=== PATIENT | female | born 1945 | race Caucasian/White ===

== ENCOUNTER → 2019-04-05 13:32 | Outpatient (CLI) | payer MEDICARE, SELFPAY ==
--- NOTE | ~2019-04-05 | MM_ITS ---
EXAMINATION: MM screening [facility] BI w jarred HISTORY: Screening mammogram TECHNIQUE: Craniocaudal and mediolateral oblique 3-D tomosynthesis images were obtained and synthetic 2-D images were generated. CAD analysis was submitted and interpreted. COMPARISON: 03/08/2018, 02/14/2017, 02/03/2016, 12/24/2014 BREAST PARENCHYMAL COMPOSITION: There are scattered areas of fibroglandular density. FINDINGS: Subtle asymmetry of the inner right breast on the craniocaudal view is stable on multiple p rior examinations. There is no evidence of suspicious mass, calcification, or architectural distortio n to suggest malignancy in either breast. There has been no suspicious interval change. IMPRESSION: 1. No mammographic evidence of malignancy. 2. Recommend routine screening mammography in one year. BI-RADS Category 2: Benign finding(s). Reviewed, dictated and finalized at location A. 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
== END ==
PROVIDERS: PCP Internal Medicine; Visit Provider Obstetrics & Gynecology
DX: Z12.31 Encounter for screening mammogram for malignant neoplasm of breast (principal)
CPT/HCPCS: 77063; 77067

== ENCOUNTER 2019-08-23 17:39 | Outpatient (CLI) | payer MEDICARE, SELFPAY ==
--- NOTE | ~2019-08-23 | XR_ITS ---
XR hip BI 2V w AP pelvis 08/23/2019 18:03 Indication: Bilateral hip pain Procedure: AP pelvis and 2 views each hip Comparison: 01/31/2006 Findings: There is mild-moderate bilateral osteoarthritis of the hips. There is a loose body lateral to the left hip joint. Pelvic rings are intact. Sacral foramen are symmetric. Degenerative changes sl ightly greater on the right. No focal soft tissue abnormality. Impression: 1: Mild-moderate bilateral osteoarthritis of the hips, right greater than left. Reviewed, dictated and finalized at location A. Impression: 1: Mild-moderate bilateral osteoarthritis of the hips, right greater than left.
--- NOTE | ~2019-08-23 | XR_ITS ---
XR lumbar spine 2-3V 08/23/2019 18:04 Indication: Low back pain Procedure: 3 views lumbar spine Comparison: 09/19/2007 Findings: There is disc narrowing at all lumbar levels, most advanced at L4-5. There is moderate mult ilevel facet hypertrophy throughout the lumbar spine. No fracture, subluxation or spondylolisthesis. There is atherosclerosis. Impression: 1: Progression of moderate lumbar spondylosis. Reviewed, dictated and finalized at location A. Impression: 1: Progression of moderate lumbar spondylosis.
== END 2019-08-23 17:40 | disposition home or self-care (01) ==
LOC: ANHIMG 17:43
PROVIDERS: PCP Internal Medicine; Visit Provider Internal Medicine
DX: M25.559 Pain in unspecified hip (principal); M16.0 Bilateral primary osteoarthritis of hip; M47.816 Spondylosis without myelopathy or radiculopathy, lumbar region
CPT/HCPCS: 72100; 73521

== ENCOUNTER → 2019-11-08 12:34 | Outpatient (CLI) | payer MEDICARE, SELFPAY ==
--- NOTE | ~2019-11-08 | MR_ITS ---
EXAMINATION: MR lumbar spine wo con EXAM DATE: 11/08/2019 13:04 INDICATION: Lumbar radiculopathy, right leg pain. TECHNIQUE: Multi-sequential, multiplanar MR images of the lumbar spine were obtained without contrast . Sagittal T1, T2, T2 fat saturation images. Axial T2 weighted images. Comparison is made to prior examination from 07/07/2011. FINDINGS: There is mild lumbar dextroscoliosis. The conus medullaris terminates at the L1 level and h as normal signal intensity and morphology. Moderate to severe disc disease L4-5, moderate at the oth er lumbar levels. There is 2 mm anterolisthesis L3 on L4. The vertebral bodies are otherwise aligned. Paraspinal soft tissue is unremarkable. Level by level evaluation: T12-L1: There is a mild diffuse disc bulge. Facet arthropathy: Mild. Neural foraminal stenosis: No stenosis. Central canal stenosis: No stenosis. L1-L2: There is a mild to moderate diffuse disc bulge, with superimposed small right central extrusio n, cephalad migration. Facet arthropathy: Mild. Neural foraminal stenosis: Mild left. Central canal stenosis: Mild to moderate. L2-L3: There is a mild to moderate diffuse disc bulge. Facet arthropathy: Moderate left, mild to moderate right. Ligamentum flavum hypertrophy.. Neural foraminal stenosis: Mild to moderate bilateral. Central canal stenosis: Mild. L3-L4: There is a moderate diffuse disc bulge. Facet arthropathy: Moderate some right-sided ligamentum flavum hypertrophy.. Neural foraminal stenosis: Moderate left, mild to moderate right. Central canal stenosis: Mild to moderate. Probable left hemilaminotomy defect. L4-L5: There is a moderate diffuse disc bulge. Facet arthropathy: Moderate. Neural foraminal stenosis: Severe left, moderate to severe right. Central canal stenosis: Mild, probable left hemilaminotomy. L5-S1: There is a moderate to large diffuse disc bulge. Facet arthropathy: Moderate to severe. Neural foraminal stenosis: Moderate to severe bilateral. Central canal stenosis: Mild to moderate. IMPRESSION: 1. Significant lower lumbar neural foraminal stenosis. 2. Spondylosis as detailed above with progression compared to 2011. Reviewed, dictated and finalized at location B.
== END ==
PROVIDERS: Visit Provider Internal Medicine
DX: M47.26 Other spondylosis with radiculopathy, lumbar region (principal)
CPT/HCPCS: 72148

== ENCOUNTER 2020-06-14 19:38 | Emergency (ER) | payer MEDICARE, SELFPAY ==
--- NOTE | ~2020-06-14 | CT_ITS ---
EXAMINATION: CT abdomen pelvis w con DATE: 06/14/2020 20:54 INDICATION: Abdominal pain. TECHNIQUE: Computed tomography (CT) of the abdomen and pelvis was performed with 100 mL Omnipaque-350 intravenous contrast. Automated exposure control and iterative reconstruction technique were employe d. The dose-length product was 344.28 mGy-cm. COMPARISON: None FINDINGS: Mild linear atelectasis at the bilateral lower lung zones. Heart size is normal. No pericardial or pl eural effusion. Cholecystectomy clips at the gallbladder fossa. Liver, spleen, pancreas and bilateral adrenal glands are normal. Bilateral renal cysts, the largest an exophytic 8 mm left renal cyst. No bowel obstruction. The appendix is not visualized. No pericecal inflammatory change to suggest acute appendicitis. Postoperative changes along the proximal colon with a couple suture lines at the ascend ing colon and hepatic flexure. At the splenic flexure there is focal prominent edematous wall thicken ing along either side of a diverticulum with prominent surrounding inflammatory stranding consistent with diverticulitis. There is a small calcification at the orifice of the diverticulum. No abscess or free intraperitoneal gas. Trace amount of free fluid in the cul-de-sac. Bladder, anteverted uterus a nd bilateral adnexa are unremarkable. There is calcified atherosclerosis of the aorta and many of the other arteries. Tiny fat-containing umbilical hernia. Mild lumbar dextrocurvature with severe spond ylosis. Moderate right and mild left hip osteoarthritis. IMPRESSION: 1. Radiographically uncomplicated diverticulitis at the hepatic flexure of the colon. Reviewed, dictated and finalized at location A.
[2020-06-14 20:00] VITALS: BP 150/59; PULSE 82; RESP 18; TEMP 36.3; O2SAT 97
[2020-06-14 20:10] LABS: Basophils Absolute Auto 0.1 K/mm3 (0.0-0.1); Basophils Percent Auto 0.4 % (0.2-1.2); Eosinophils Absolute Auto 0.1 K/mm3 (0-0.3); Eosinophils Percent Auto 0.4 % (0-4.4); Hematocrit 38.2 % (37.0-47.0); Hemoglobin 12.6 g/dL (12.0-15.0); Immature Granulocyte Absolute 0.05 K/mm3 (0.00-0.031); Immature Granulocyte Percent A 0.4 % (0-0.5); Lymphocytes Absolute Auto 2.25 K/mm3 (0.9-3.2); Lymphocytes Percent Auto 19.6 % (18.3-44.2); Mean Corpuscular Hemoglobin 30.3 pg (26-34); Mean Corpuscular Volume 91.8 fl (80-100); Mean Platelet Volume 9.3 fl (7.4-10.4); Monocytes Absolute Auto 0.8 K/mm3 (0.1-0.6); Monocytes Percent Auto 7.1 % (2.6-8.5); Neutrophils Absolute Auto 8.3 K/mm3 (1.3-6.7); Neutrophils Percent Auto 72.1 % (45.5-73.1); Platelet Count Result 238 k/mm3 (150-375); Red Blood Count 4.16 M/mm3 (4.2-5.4); Red Cell Distribution Width 13.1 % (11.5-14.5); White Blood Count 11.5 K/mm3 (4.5-10.0)
[2020-06-14 20:19] VITALS: TEMP 36.9
[2020-06-14 20:20] LABS: Alanine Aminotransferase 24 U/L (4-35); Albumin Level 4.3 g/dL (3.5-5.1); Alkaline Phosphatase 44 U/L (38-126); Anion Gap 0 mmol/L (8-16); Aspartate Amino Transferase 27 U/L (14-36); Bilirubin,Total 0.9 mg/dL (0.2-1.3); Blood Urea Nitrogen 9 mg/dL (7-17); Calcium 9.6 mg/dL (8.4-10.2); Carbon Dioxide 33 mmol/L (22-30); Chloride 106 mmol/L (98-107); Estimated CRCL calculation 52 ml/min; Estimated Glomerular Filt Rate > 60; Glucose 110 mg/dL (65-105); Lipase 47 U/L (23-300); Potassium 4.1 mmol/L (3.4-5.0); Sodium 139 mmol/L (137-145)
--- NOTE | 2020-06-14 20:31 | ED.ABDPAIN ---
HPI - Abdominal Pain General Chief Complaint: Abdominal Pain Stated Complaint: abdominal pain Time Seen by Provider: 06/14/20 20:18 Source: RN notes reviewed History of Present Illness HPI narrative: Patient presents to emergency department from home for abdominal pain. Patient states that symptoms began this morning is located in the bilateral lower abdomen described as cramping in nature patient states is associated with mild nausea she states nothing seems to make the pain better or worse. She called her PCP today who called in dicyclomine which she took with minimal relief denies take any other pain medication states she had a low-grade fever of 100.5 at home denies any diarrhea Related Data Home Medications Medication Instructions Recorded Confirmed magnesium oxide 400 mg PO DAILY 05/10/19 02/25/20 aspirin 81 mg chewable tablet 81 mg PO DAILY 02/25/20 02/25/20 cholecalciferol (vitamin D3) 50 50 mcg PO DAILY 02/25/20 02/25/20 mcg (2,000 unit) capsule linaclotide 72 mcg capsule 72 mcg PO DAILY 02/25/20 02/25/20 pantoprazole 40 mg tablet,delayed 40 mg PO QAM 02/25/20 02/25/20 release Allergies Allergy/AdvReac Type Severity Reaction Status Date / Time oxycodone Allergy Intermediate Nausea and Verified 02/25/20 13:18 Vomiting propoxyphene Allergy Intermediate Nausea Verified 02/25/20 13:18 gemfibrozil Allergy Unknown Nausea Verified 02/25/20 13:18 Sulfa (Sulfonamide Allergy Unknown Rash Verified 02/25/20 13:18 Antibiotics) Review of Systems Review of Systems: Narrative: Gen.: Denies fevers or chills ENT: Denies congestion Respiratory: Denies shortness of breath or cough CV: Denies chest pain or palpitations GI: See HPI denies burning, urgency, frequency or hematuria Musculoskeletal: Denies back pain or muscle pain Neuro: Denies numbness, tingling, weakness or focal weakness Skin: Denies rash Except as documented, all other systems reviewed and negative [facility] Past Medical History Medical History Abnormal carotid ultrasound Cervicalgia Complete tear of left rotator cuff Fibromyalgia Personal history of transient ischemic attack (TIA), and cerebral infarction without residual deficits Polyosteoarthritis, unspecified Screening for breast cancer Screening for colon cancer Spinal stenosis of lumbar region Family History Family History Mother Hypertension Sibling Patient's sister is in good health Patient's brother is in good health Family history of alcoholism Cerebrovascular accident Father Family history of pancreatic cancer Patient's father is Social History Social History Smoking status: Never smoker Alcohol intake: never Exam Narrative: Exam Narrative: APPEARANCE: No acute distress, nontoxic, resting in bed HEENT: Normocephalic, atraumatic, OMM RESPIRATORY: No respiratory distress, clear to auscultation bilaterally with no rhonchi wheezing or rales CARDIOVASCULAR: RRR s murmur ABDOMINAL: Soft nondistended tender palpation right lower quadrant left lower quadrant no tenderness in right upper quadrant left upper quadrant no rebound or guarding MUSCULOSKELETAl: Moves all extremities. No clubbing, cyanosis or edema. NEURO: Awake and alert. Following commands, speech normal, no focal deficits SKIN:: Warm, dry. Normal Color PSYCHIATRIC: Normal affect/mood Course Course Emergency Course: Patient states that they are feeling much better at this time. States abdominal pain has improved. Repeat abdominal exam shows the patient's abdomen to be soft with no surgical abdomen present. Discussed with patient results of workup and diagnosis. Discussed need for follow-up with primary care physician, reasons to return to the emergency department in proper use of medication. Patient understands and agrees to cur
[2020-06-14] MEDS: ONDANSETRON INJ 4 MG/2 ML VIAL IV PUSH (20:37)
[2020-06-14 20:38] LABS: Add Urine Microscopic? YES; Appearance Urine Clear (Clear); Bilirubin Urine Negative (Negative); Blood Urine 1+ (Negative); Color Urine Yellow (Yellow); Glucose Urine UA Negative (Negative); Ketones Urine Negative (Negative); Leukocyte Esterase Ur Negative LEU/UL (Negative); Mucus Urine Rare /lpf; Nitrate Urine Negative (Negative); Protein Urine Negative (Negative); RBC Urine 0-2 /hpf (0-2); Specific Grav Ur 1.012 (1.001-1.035); Squamous Epithelial Cell Urine Few /hpf (Few); Urobilinogen Urine Negative mg/dL (<2.0); WBC Urine 0-3 /hpf
[2020-06-14] MEDS: SODIUM CHLORIDE 0.9% IV 1,000 ML 999 ML IV CONT (20:38)
[2020-06-14] MEDS: AMOXICILLIN/CLAVULANATE K 875-125 MG TAB 1 TABLET PO (21:24)
[2020-06-14 21:46] VITALS: BP 136/61; PULSE 72; RESP 16; O2SAT 97
== END 2020-06-14 21:45 | disposition home or self-care (01) ==
PROVIDERS: Emergency Provider Emergency Medicine; PCP Internal Medicine
DX: K57.32 Diverticulitis of large intestine without perforation or abscess without bleeding (principal); M79.7 Fibromyalgia; M19.90 Unspecified osteoarthritis, unspecified site; Z86.73 Personal history of transient ischemic attack (TIA), and cerebral infarction without residual deficits
CPT/HCPCS: 36415; 74177; 80053; 81001; 83690; 85025; 96361; 96365; 96375; 99284; A9270; J0131; J2405; J7030; Q9967

== ENCOUNTER 2020-07-14 15:05 | Outpatient (CLI) | payer MEDICARE, SELFPAY ==
--- NOTE | ~2020-07-14 | MM_ITS ---
EXAMINATION: MM screening [facility] BI w jarred HISTORY: Screening TECHNIQUE: Craniocaudal and mediolateral oblique 3-D tomosynthesis images were obtained and synthetic 2-D images were generated. CAD analysis was submitted and interpreted. COMPARISON: Comparison to multiple prior studies sequentially, with oldest reviewed study dated 12/14. BREAST PARENCHYMAL COMPOSITION: There are scattered areas of fibroglandular density. FINDINGS: There is no evidence of suspicious mass, calcification, or architectural distortion to sugg est malignancy in either breast. There has been no suspicious interval change. IMPRESSION: 1. No mammographic evidence of malignancy. 2. Recommend routine screening mammography in one year. BI-RADS Category 1: Negative Reviewed, dictated and finalized at location A.
--- NOTE | ~2020-07-14 | DEXA_ITS ---
Bone Density Report Name: Christa Quiroz Age: 75 Sex: Female Ethnicity: White Date of : 1945 Indication: postmenopausal; inflammatory bowel disease; Referring Provider: Roxanna Hawkins Study: Bone densitometry was performed. Exam Date: July 14, 2020 Accession number: [id number] Bone Density: Region BMD T-score Z-score Classification AP Spine (L1-L4) 1.153 1.0 3.3 Normal Femoral Neck (Left) 0.593 -2.3 -0.3 Osteopenia Total Hip (Left) 0.800 -1.2 0.6 Osteopenia Total Hip Bilateral Avg 0.832 -0.9 0.9 Normal Femoral Neck (Right) 0.647 -1.8 0.2 Osteopenia Total Hip (Right) 0.862 -0.7 1.1 Normal World Health Organization criteria for BMD impression classify patients as: Normal (T-score at or above -1.0), Osteopenia (T-score between -1.0 and -2.5), or Osteoporosis (T-score at or below -2.5). 10-year Fracture Risk(1): Major Osteoporotic Fracture 15% Hip Fracture 4.0% Reported Risk Factors: [place] (), Neck BMD=0.593, BMI=25.4 (1) FRAX(R) Version 3.08. Fracture probability calculated for an untreated patient. Fracture probability may be lower if the patient has received treatment. Clinical Information Provided by Patient: Has used the following medications: Vitamin D, Calcium Has the following medical conditions: Inflammatory bowel diseases Patient maximum height was 61 Menopause Age: 53 No regular weight bearing exercise Drinks caffeinated beverages Onset of menses at age 13 Number of children 1 Impression: The patient has low bone mass, based on the Left Femoral Neck T-score. The patient has an estimated ten-year risk of hip fracture of 4% and an estimated ten-year risk of major fracture of 15%, based on the WHO FRAX algorithm. Discussion: BONE DENSITY IS LOW AT ONE OR MORE SKELETAL SITES. THE PATIENT'S BMD AND CLINICAL RISK FACTORS CONTRIBUTE TO THIS PATIENT'S INCREASED RISK OF FRACTURE. This patient's lowest T-score is low at one or more skeletal sites. It meets the World Health Organization's (WHO) criteria for ?low bone mass? (T-score between -1.0 and -2.5). The patient's 10-year risk of hip fracture as calculated by FRAX exceeds the threshold where pharmacological therapy is recommended by the National Osteoporosis Foundation (NOF). However, all treatment decisions require clinical judgment and consideration of individual patient factors, including patient preferences, comorbidities, previous drug use, risk factors not captured in the FRAX model (e.g., frailty, falls, vitamin D deficiency, increased bone turnover, interval significant decline in bone density) and possible under or overestimation of fracture risk by FRAX. The patient should follow a healthful lifestyle (good nutrition with adequate calcium and vitamin D, and appropriate weight-bearing exercise). Follow-Up: Consider a rep
== END 2020-07-14 15:06 | disposition home or self-care (01) ==
PROVIDERS: PCP Internal Medicine; Visit Provider Obstetrics & Gynecology
DX: Z12.31 Encounter for screening mammogram for malignant neoplasm of breast (principal); Z78.0 Asymptomatic menopausal state; M85.89 Other specified disorders of bone density and structure, multiple sites
CPT/HCPCS: 77063; 77067; 77080

== ENCOUNTER 2020-08-19 16:15 | Emergency (ER) | payer MEDICARE, SELFPAY ==
--- NOTE | ~2020-08-19 | CT_ITS ---
EXAMINATION: CTA chest PE protocol DATE: 08/19/2020 20:22 CDT INDICATION: Chest and back pain TECHNIQUE: Computed tomographic angiography (CTA) of the chest was performed with 100 mL Omnipaque-35 0 intravenous contrast. The dose-length product was 220.32 mGy-cm. Maximum intensity projection 3D-re constructions of the aorta and other arteries were constructed by the technologist on a separate work station. Automated exposure control and iterative reconstruction technique were employed. COMPARISON: Chest dated 08/19/2020. FINDINGS: Study is technically adequate without evidence for pulmonary embolism. No thoracic lymphade nopathy. There is atherosclerosis of the aorta and coronary arteries without evidence for aneurysm or dissection. Study limited by motion artifact. There are patchy groundglass opacities of the mid and lower lung zones. Bibasilar atelectasis. No endobronchial lesions. There are cholecystectomy clips. M ild thoracic spondylosis. IMPRESSION: 1. No evidence for pulmonary embolism, although evaluation limited by motion. 2: Patchy groundglass opacities of the mid and lower lung zones, considerations include edema and pn eumonia. 3: Subsegmental right basilar atelectasis. Reviewed, dictated and finalized at location A. IMPRESSION: 1. No evidence for pulmonary embolism, although evaluation limited by motion. 2: Patchy groundglass opacities of the mid and lower lung zones, consideration s include edema and pneumonia. 3: Subsegmental right basilar atelectasis.
--- NOTE | ~2020-08-19 | XR_ITS ---
EXAMINATION: XR chest 2V EXAM DATE: 08/19/2020 16:52 INDICATION: Superior chest pain. TECHNIQUE: Frontal and lateral projections of the chest obtained and reviewed. Comparison is made to prior examination from 11/28/2018. FINDINGS: Some scattered linear basilar atelectasis. The lungs are otherwise clear. There are chol ecystectomy clips. There is no pneumothorax suspected. There are no pleural effusions. Cardiomediast inal silhouette is normal. IMPRESSION: Scattered linear basilar subsegmental atelectasis. Reviewed, dictated and finalized at location B.
--- NOTE | 2020-08-19 16:16 | ECG_ITS ---
Measurements Intervals [place] Rate: 69 P: 9 GA: 159 QRS: -29 QRSD: 86 T: 53 QT: 386 QTc: 414 Interpretive Statements SINUS RHYTHM POOR R WAVE PROGRESSION, ANTERIOR LEADS BORDERLINE ECG Electronically Signed On 08-19-2020 16:39:30 CDT by Mio Vasquez D.O.
[2020-08-19 16:30] VITALS: BP 115/66; PULSE 67; RESP 16; TEMP 36.8; O2SAT 100
[2020-08-19 16:39] LABS: Basophils Absolute Auto 0.1 K/mm3 (0.0-0.1); Basophils Percent Auto 0.9 % (0.2-1.2); Eosinophils Absolute Auto 0.2 K/mm3 (0-0.3); Eosinophils Percent Auto 3.9 % (0-4.4); Hematocrit 38.7 % (37.0-47.0); Hemoglobin 12.6 g/dL (12.0-15.0); Immature Granulocyte Absolute 0.01 K/mm3 (0.00-0.031); Immature Granulocyte Percent A 0.2 % (0-0.5); Lymphocytes Absolute Auto 2.33 K/mm3 (0.9-3.2); Mean Corpuscular HGB Conc 32.6 g/dl (32-36); Mean Corpuscular Volume 92.1 fl (80-100); Mean Platelet Volume 9.6 fl (7.4-10.4); Monocytes Absolute Auto 0.4 K/mm3 (0.1-0.6); Monocytes Percent Auto 7.2 % (2.6-8.5); Neutrophils Absolute Auto 2.4 K/mm3 (1.3-6.7); Neutrophils Percent Auto 44.8 % (45.5-73.1); Platelet Count Result 211 k/mm3 (150-375); Red Cell Distribution Width 13.2 % (11.5-14.5); White Blood Count 5.4 K/mm3 (4.5-10.0)
[2020-08-19 16:49] LABS: Anion Gap 5 mmol/L (8-16); Blood Urea Nitrogen 12 mg/dL (7-17); Calcium 8.8 mg/dL (8.4-10.2); Carbon Dioxide 28 mmol/L (22-30); Chloride 106 mmol/L (98-107); Estimated CRCL calculation 46 ml/min; Estimated Glomerular Filt Rate > 60; Glucose 126 mg/dL (65-105); Potassium 3.9 mmol/L (3.4-5.0); Prothrombin Time 12.8 Seconds (11.1-14.7); Sodium 139 mmol/L (137-145)
[2020-08-19 16:50] LABS: Partial Thromboplastin Time 27.5 SECONDS (22.3-36.8)
[2020-08-19 17:02] LABS: Troponin I < 0.012 ng/mL (0.000-0.034)
[2020-08-19 19:16] VITALS: BP 122/68; PULSE 64; RESP 18; O2SAT 96
--- NOTE | 2020-08-19 19:25 | ED.CHESTPAIN ---
HPI - Chest Pain General Chief Complaint: Chest Pain Stated Complaint: cp since monday Time Seen by Provider: 08/19/20 19:25 Source: patient Mode of arrival: ambulatory Limitations: no limitations History of Present Illness HPI narrative: Patient is a 75-year-old female with a history of osteopenia who presents for evaluation of chest pain. Pain has been present over the past 4 days, described as aching in nature over her entire chest and in her back. She denies any jaw pain, neck pain, shortness of breath or palpitations. No nausea or diaphoresis. She has been taking a Tylenol and ibuprofen without much improvement in her symptoms. Patient attributes the pain to starting a new Fosamax medication. States in the past when she tried to take this medication she experienced similar pain. Patient's [facility] Dr. Hawkins sent her here for evaluation given her symptoms. Related Data Home Medications Medication Instructions Recorded Confirmed magnesium oxide 400 mg PO DAILY 05/10/19 02/25/20 aspirin 81 mg chewable tablet 81 mg PO DAILY 02/25/20 02/25/20 cholecalciferol (vitamin D3) 50 50 mcg PO DAILY 02/25/20 02/25/20 mcg (2,000 unit) capsule linaclotide 72 mcg capsule 72 mcg PO DAILY 02/25/20 02/25/20 pantoprazole 40 mg tablet,delayed 40 mg PO QAM 02/25/20 02/25/20 release Allergies Allergy/AdvReac Type Severity Reaction Status Date / Time oxycodone Allergy Intermediate Nausea and Verified 08/19/20 19:38 Vomiting propoxyphene Allergy Intermediate Nausea Verified 08/19/20 19:38 gemfibrozil Allergy Unknown Nausea Verified 08/19/20 19:38 Sulfa (Sulfonamide Allergy Unknown Rash Verified 08/19/20 19:38 Antibiotics) Review of Systems Review of Systems: Narrative: CONSTITUTIONAL: Denies fever, chills, or sweats. EYES: Denies visual changes, redness, or discharge. ENT: Denies rhinorrhea, congestion, sore throat, or otalgia. CARDIOVASCULAR: Reports chest pain, denies palpitations, or edema. RESPIRATORY: Denies cough or dyspnea. GASTROINTESTINAL: Denies abdominal pain, nausea, vomiting, or diarrhea. GENITOURINARY: Denies dysuria or hematuria. SKIN: Denies rash or itching. MUSCULOSKELETAL: Denies back pain, joint pain, or myalgia. NEUROLOGIC: Denies headache, numbness, or weakness. PSYCHIATRIC: Denies anxiety or depression. [facility] Past Medical History Medical History Abnormal carotid ultrasound Cervicalgia Complete tear of left rotator cuff Fibromyalgia Personal history of transient ischemic attack (TIA), and cerebral infarction without residual deficits Polyosteoarthritis, unspecified Screening for breast cancer Screening for colon cancer Spinal stenosis of lumbar region Family History Family History Mother Hypertension Sibling Patient's sister is in good health Patient's brother is in good health Family history of alcoholism Cerebrovascular accident Father Family history of pancreatic cancer Patient's father is Social History Social History Smoking status: Never smoker Alcohol intake: never Gender identity (if verbalized by the patient): Female Exam Narrative: Exam Narrative: GENERAL: Awake, alert, conversant HEAD: Normocephalic, atraumatic. EYES: PERRLA and EOMI. ENT: Nares clear, no rhinorrhea or epistaxis. Mucous membranes moist. NECK: Supple. CHEST: No respiratory distress, breathing even and non labored, reproducible chest wall tenderness over the anterior chest wall, no crepitus or ecchymoses HEART: Regular rate, sinus rhythm ABDOMEN:Non distended, non tender EXTREMITIES: Normal range of motion. No edema. SKIN: Warm, dry, no rash. NEURO:No focal deficits. Alert and oriented x3 Course Vital Signs Vital signs: Vital Signs Temperature 36.8 C 08/19/20 16:30 Pulse Rate 67 08/19/20 16:30 Respirat
[2020-08-19] MEDS: ASPIRIN 81 MG CHEWABLE TABLET 324 MG PO (19:33)
[2020-08-19 19:35] VITALS: O2SAT 96
[2020-08-19 19:49] LABS: Troponin I < 0.012 ng/mL (0.000-0.034)
[2020-08-19 20:31] VITALS: BP 106/55; PULSE 63; RESP 21; O2SAT 97
[2020-08-19 21:50] VITALS: BP 124/59; PULSE 60; RESP 18; O2SAT 98
[2020-08-20 15:39] LABS: SARS-CoV-2 RNA PCR Negative
== END 2020-08-19 21:55 | disposition home or self-care (01) ==
PROVIDERS: Emergency Medicine; Emergency Provider Emergency Medicine; PCP Internal Medicine
DX: J18.9 Pneumonia, unspecified organism (principal); R07.89 Other chest pain; Z20.822 Contact with and (suspected) exposure to COVID-19; M79.7 Fibromyalgia; M19.90 Unspecified osteoarthritis, unspecified site; Z86.73 Personal history of transient ischemic attack (TIA), and cerebral infarction without residual deficits; R94.31 Abnormal electrocardiogram [ECG] [EKG]; Z79.82 Long term (current) use of aspirin
CPT/HCPCS: 36415; 71046; 71275; 80048; 84484; 85025; 85610; 85730; 93005; 99284; A9270; C9803; Q9967; U0003; U0005

== ENCOUNTER 2020-11-27 19:52 | Emergency (ER) | payer MEDICARE, SELFPAY ==
--- NOTE | ~2020-11-27 | CT_ITS ---
EXAMINATION: CT brain wo con DATE: 11/27/2020 20:41 INDICATION: Head injury. Headache. TECHNIQUE: Computed tomography (CT) of the head was performed without intravenous contrast. The mA wa s adjusted according to patient size. Iterative reconstruction technique was employed. The dose-lengt h product was 605.33 mGy-cm. COMPARISON: Head CT 06/05/2017 FINDINGS: There is chronic encephalomalacia involving the right frontal lobe deep white matter and ri ght caudate nucleus. There are scattered areas of low attenuation in the cerebral white matter. There is no intracranial hemorrhage, acute infarction, or abnormal intracranial mass lesion. The ventricle s are normal in size. The orbits are normal. There is mild mucosal thickening in the paranasal sinuse s. The mastoid air cells are normal. IMPRESSION: 1. Chronic encephalomalacia involving the right frontal lobe deep white matter and right caudate nucl eus. 2. Stable mild nonspecific cerebral white matter disease, which likely represents chronic small vesse l ischemic disease. Reviewed, dictated and finalized at location A. IMPRESSION: 1. Chronic encephalomalacia involving the right frontal lobe deep white matter and right caudate nucleus. 2. Stable mild nonspecific cerebral white matter disease, which likely represen ts chronic small vessel ischemic disease.
[2020-11-27 20:01] VITALS: BP 143/78; PULSE 78; RESP 18; TEMP 36.4; O2SAT 98
--- NOTE | 2020-11-27 20:41 | ED.FALL ---
HPI - Fall General Chief Complaint: Fall Stated Complaint: tripped and hit back of head- now headache Time Seen by Provider: 11/27/20 20:07 Source: patient Mode of arrival: ambulatory Limitations: no limitations History of Present Illness HPI Narrative: This is a 75 year old female who presents for evaluation of a head injury. Patient states she tripped getting out of her car. She fell backwards and she hit her head on the grass. She denies LOC but she reports she developed new headache after injury . Her headache is improving. She denies neck pain, extremity pain or rib pain. She nausea, vomiting, dizziness or blurred vision. She takes aspirin 81 mg daily. Related Data Home Medications Medication Instructions Recorded Confirmed magnesium oxide 400 mg PO DAILY 05/10/19 09/03/20 aspirin 81 mg chewable tablet 81 mg PO DAILY 02/25/20 09/03/20 cholecalciferol (vitamin D3) 50 50 mcg PO DAILY 02/25/20 09/03/20 mcg (2,000 unit) capsule pantoprazole 40 mg tablet,delayed 40 mg PO QAM 02/25/20 09/03/20 release alendronate 70 mg tablet 70 mg PO WEEKLY 09/03/20 09/03/20 Allergies Allergy/AdvReac Type Severity Reaction Status Date / Time oxycodone Allergy Intermediate Nausea and Verified 11/27/20 21:01 Vomiting propoxyphene Allergy Intermediate Nausea Verified 11/27/20 21:01 gemfibrozil Allergy Unknown Nausea Verified 11/27/20 21:01 Sulfa (Sulfonamide Allergy Unknown Rash Verified 11/27/20 21:01 Antibiotics) Review of Systems Review of Systems: All systems reviewed & are unremarkable except as noted in HPI and below PMFSH Past Medical History Medical History Abnormal carotid ultrasound Cervicalgia Complete tear of left rotator cuff Fibromyalgia Personal history of transient ischemic attack (TIA), and cerebral infarction without residual deficits Polyosteoarthritis, unspecified Screening for breast cancer Screening for colon cancer Spinal stenosis of lumbar region Family History Family History Mother Hypertension Sibling Patient's sister is in good health Patient's brother is in good health Family history of alcoholism Cerebrovascular accident Father Family history of pancreatic cancer Patient's father is Social History Social History (Updated 09/03/20 @ 15:51 by Bonnie Phillips MA) Smoking packs per day: 0.25 Smoking cigarettes per day: 5.0 Years smoked: 8 Smoking pack-years: 2.00 Smoking status: Former smoker Second hand tobacco smoke exposure: Yes Smoking end date: 11/01/78 Alcohol intake: never Substance use: never Gender identity (if verbalized by the patient): Female Exam Const: General: no acute distress and alert Orientation/consciousness: patient oriented x3 HENMT: Head: normocephalic and atraumatic Face and sinus: normal facial exam, sinuses nontender and face symmetric Mouth: Yes Normal oral and palatal mucosa present, Yes lip normal, Yes oropharynx normal and Yes moist mucous membranes Throat: posterior oropharynx normal Eyes: EOM: EOMs intact bilaterally Chest: Chest palpation & inspection: normal inspection of the chest and no tenderness Resp: Effort & Inspection: normal respiratory effort and no retractions Auscultation: clear to auscultation bilaterally Cardio: Rate: regular rate Rhythm: regular rhythm Heart sounds: no murmurs GI: GI Palp: Yes Soft to palpation, No Tenderness to palpation present (GI) and No Guarding due to palpation present (GI) Auscultation: normal bowel sounds Back/Spine/Pelvis: Other: no c spine tenderness Skin: General skin exam: normal color Rashes: no rashes Neuro: General: patient oriented x3, moves all extremities and CN's II-XI intact bilaterally Extrem: Other: mild left shoulder tenderness at site of influenza vaccination, bandage in place Psych: Mental Status: menta
[2020-11-27 20:58] VITALS: BP 132/64; PULSE 66; RESP 16; O2SAT 98
[2020-11-27 21:04] VITALS: PULSE 66; RESP 16; O2SAT 97
== END 2020-11-27 21:06 | disposition home or self-care (01) ==
PROVIDERS: Emergency Provider General Practice; PCP Internal Medicine
DX: S09.90XA Unspecified injury of head, initial encounter (principal); M79.7 Fibromyalgia; M19.90 Unspecified osteoarthritis, unspecified site; Z86.73 Personal history of transient ischemic attack (TIA), and cerebral infarction without residual deficits; Z87.891 Personal history of nicotine dependence; Z79.82 Long term (current) use of aspirin; W01.0XXA Fall on same level from slipping, tripping and stumbling without subsequent striking against object, initial encounter
CPT/HCPCS: 70450; 99284

== ENCOUNTER 2020-12-07 18:48 | Emergency (ER) | payer MEDICARE, SELFPAY ==
--- NOTE | ~2020-12-07 | XR_ITS ---
XR finger 5th RT min 2V 12/07/2020 19:12 Indication: Right fifth finger pain status post injury Procedure: 3 views right fifth finger Comparison: 04/16/2016 Findings: There is a mildly displaced fracture dorsal base of the fifth distal phalanx, best seen on lateral view. There is mild polyarticular osteoarthritis. Osteopenia. No other fracture. Mild soft ti ssue swelling. Impression: 1: Mildly displaced fracture dorsal base right fifth distal phalanx. Reviewed, dictated and finalized at location A. Impression: 1: Mildly displaced fracture dorsal base right fifth distal phalanx.
[2020-12-07 18:58] VITALS: BP 143/58; PULSE 79; RESP 16; TEMP 36.1; O2SAT 98
--- NOTE | 2020-12-07 19:34 | ED.EXTPRO ---
HPI - Extremity Problem General Chief complaint: Extremity Problem,Nontraumatic Stated complaint: Swelling of finger Time Seen by Provider: 12/07/20 19:20 Source: patient, family, RN notes reviewed and old records reviewed Mode of arrival: ambulatory Limitations: no limitations History of Present Illness HPI Narrative: 75 year old female accompanied by grandson with complaints of pain to her 5th finger of her right hand for the past 3 weeks. She states that she hit it on something and she continues to have some pain and swelling to the distal dorsal aspect of her 5th right finger. Patient reports that she has applied some ice to theher 5th finger and has taken some Tylen for the discomfort. Patient is unable to bend the DIP of 5th right finger, denies any tingling or numbness to her right hand or fingers, MD Complaint: extremity pain and extremity swelling Related Data Home Medications Medication Instructions Recorded Confirmed aspirin 81 mg chewable tablet 81 mg PO DAILY 02/25/20 09/03/20 cholecalciferol (vitamin D3) 50 50 mcg PO DAILY 02/25/20 09/03/20 mcg (2,000 unit) capsule pantoprazole 40 mg tablet,delayed 40 mg PO QAM 02/25/20 09/03/20 release alendronate 70 mg tablet 70 mg PO WEEKLY 09/03/20 09/03/20 icosapent ethyl [Vascepa] g PO 12/07/20 Allergies Allergy/AdvReac Type Severity Reaction Status Date / Time oxycodone Allergy Intermediate Nausea and Verified 12/07/20 19:23 Vomiting propoxyphene Allergy Intermediate Nausea Verified 12/07/20 19:23 gemfibrozil Allergy Unknown Nausea Verified 12/07/20 19:23 Sulfa (Sulfonamide Allergy Unknown Rash Verified 12/07/20 19:23 Antibiotics) Review of Systems Review of Systems: CONSTITUTIONAL: Denies fever, chills, or sweats. EYES: Denies visual changes, redness, or discharge. ENT: Denies rhinorrhea, congestion, sore throat, or otalgia. CARDIOVASCULAR: Denies chest pain, palpitations, or edema. RESPIRATORY: Denies cough or dyspnea. GASTROINTESTINAL: Denies abdominal pain, nausea, vomiting, or diarrhea. GENITOURINARY: Denies dysuria or hematuria. SKIN: Denies rash or itching. MUSCULOSKELETAL: Denies back pain,positive for pain and swelling to distal 5th finger of right hand, or myalgia. NEUROLOGIC: Denies headache, numbness, or weakness. PSYCHIATRIC:Positive history of anxiety or depression. All systems reviewed & are unremarkable except as noted in HPI and below PMFSH Past Medical History Medical History Abnormal carotid ultrasound Cervicalgia Complete tear of left rotator cuff Fibromyalgia Personal history of transient ischemic attack (TIA), and cerebral infarction without residual deficits Polyosteoarthritis, unspecified Screening for breast cancer Screening for colon cancer Spinal stenosis of lumbar region Surgical History Surgical History (Updated 12/12/20 @ 11:16 by Sharon Cantor NP) History of bilateral carpal tunnel release History of colon resection History of shoulder surgery Hx of appendectomy Previous back surgery Family History Family History Mother Hypertension Sibling Patient's sister is in good health Patient's brother is in good health Family history of alcoholism Cerebrovascular accident Father Family history of pancreatic cancer Patient's father is Social History Social History Smoking packs per day: 0.25 Smoking cigarettes per day: 5.0 Years smoked: 8 Smoking pack-years: 2.00 Smoking status: Former smoker Second hand tobacco smoke exposure: Yes Smoking end date: 11/01/78 Alcohol intake: never Substance use: never Gender identity (if verbalized by the patient): Female Comments At time of signature, agree with nursing past medical, surgical, social and family history. There is no relevant family history pertine
== END 2020-12-07 19:55 | disposition home or self-care (01) ==
PROVIDERS: Emergency Provider Registered Nurse; PCP Internal Medicine
DX: S62.636A Displaced fracture of distal phalanx of right little finger, initial encounter for closed fracture (principal); X58.XXXA Exposure to other specified factors, initial encounter; M79.7 Fibromyalgia; Z86.73 Personal history of transient ischemic attack (TIA), and cerebral infarction without residual deficits; M19.90 Unspecified osteoarthritis, unspecified site; Z87.891 Personal history of nicotine dependence; M48.061 Spinal stenosis, lumbar region without neurogenic claudication
CPT/HCPCS: 29130; 73140; 99214; G0463

== ENCOUNTER 2021-01-12 16:14 | Outpatient (CLI) | payer MEDICARE, SELFPAY ==
--- NOTE | ~2021-01-12 | XR_ITS ---
XR finger 5th RT min 2V 01/12/2021 16:55 Indication: Follow-up right fifth finger fracture Procedure: 4 views right fifth finger Comparison: 12/07/2020 Findings: Stable alignment of displaced fracture right fifth distal phalanx involving the dorsal base . Mild soft tissue swelling. No significant periosteal reaction or callus formation. Impression: 1: No significant interval change to mildly displaced fracture dorsal base right fifth distal phalanx without evidence for new productive bone formation. Reviewed, dictated and finalized at location B. ION HAND HELPER Impression: 1: No significant interval change to mildly displaced fracture dorsal base righ t fifth distal phalanx without evidence for new productive bone formation.
== END 2021-01-12 16:15 | disposition home or self-care (01) ==
LOC: ANHIMG 16:21
PROVIDERS: PCP Internal Medicine; Visit Provider Plastic Surgery
DX: S62.636A Displaced fracture of distal phalanx of right little finger, initial encounter for closed fracture (principal)
CPT/HCPCS: 73140

== ENCOUNTER 2021-01-21 01:14 | Day surgery (SDC) | payer MEDICARE, SELFPAY ==
[2021-01-15 08:37] VITALS: BMI 26.4
--- NOTE | 2021-01-15 08:41 | PC.NURSE ---
Report to the Outpatient Waiting Room, entrance under the green pavilion located off [facility], at time _1200___ on date _01/21/21__. OR Time: _1PM__. - You and your visitor will be asked a series of questions to screen for COVID 19 for your protection. - A mask is required within the hospital. - Only one visitor is allowed at this time. Patient visitors will be guided where to wait when not with patient. Preoperative COVID Testing Requirements: No COVID Test needed if: (proof is required; if not received patient will have Rapid Test prior to entry) - Patient has received COVID Vaccine at least 14 days prior to procedure date or - Patient has positive COVID test result within last 90 days of surgery date. COVID Test needed if above criteria is not met If not COVID vaccinated a COVID test must be conducted within 72 hours of surgery and patient is asked to isolate self from time of testing until procedure. You will go to the [facility] for your COVID testing. The [facility] site is located at the corner of [address] [facility]. You will only be called if COVID results are positive and your surgeon may reschedule your elective surgery date. Patients may have clear liquids (water, carbonated beverages, clear teas, apple juice) until 3 hours prior to surgery with a maximum of 20 ounces. - No food from midnight until time of surgery - Infants may have breast milk until 4 hours before surgery, formula 6 hours prior to surgery. - Children will be allowed to drink immediately following surgery. If applicable, please bring a bottle or sippy cup to assist with drinking. Juice, water, soda, and popsicles are readily available. For infants on formula, please bring formula the day of surgery. Pacifiers are allowed. Take the following medications with a SIP of water the morning of surgery: __REGULAR HOME MEDS Medications to discontinue per physician Date to take last dose Please no make-up, nail greek, hairspray, perfume, deodorant, or body powder the day of surgery. No jewelry (including any body piercings) or valuables the day of surgery, leave them at home. Please take a shower or bath the night before, or the morning of, surgery with an antibacterial soap. Wear comfortable, loose fitting clothing. Children are encouraged to wear pajamas. - Jewelry must be removed prior to entering the operating room. Rings and piercings that are not removed may be cut off. - The hospital will not accept responsibility for valuables. - Please leave all valuables, including medications, at home the day of surgery. If you are going home after surgery, a licensed tractor trailer truck driver must drive you home. - NO public transportation without another adult. - We recommend that an adult stay with you for 24 hours following discharge. - We also recommend that you do not drive, make important decision, drink alcoholic beverages, or take any drugs that were not prescribed by your health care provider for at least 24 hours after your discharge time. For Pediatric surgeries, we recommend two adults accompany the child home (only one inside the building at this time). Follow any additional instructions given to you from your surgeon. Telephone instructions given to ____PT and asked if any additional questions and then verbalized understanding. Patient advised to call surgeon office or pre surgery nurse liaison [phone] if any additional questions.
[2021-01-21] VITALS (16 sets, daily range): BP systolic 98–132; BP diastolic 56–64; PULSE 54–68; RESP 16–20; TEMP 36.2; O2SAT 95–100
--- NOTE | ~2021-01-21 | XR_ITS ---
EXAMINATION: XR surgery orthopedic DATE: 01/21/2021 14:14 INDICATION: ORIF right fifth distal phalangeal fracture TECHNIQUE: 5 fluoroscopic images of the distal right fifth digit were obtained during procedure perfo rmed by Dr. Curtis. Radiologist was not present for the imaging or procedure. The amount of fluoroscop y time used during this procedure was 4.8 minutes. COMPARISON: 01/12/2021 FINDINGS: Reduction and fixation with a pair of percutaneous pins of the previously noted intra-articular fract ure at the base of the left fifth distal phalanx. The dorsal displacement and reduced. There is minim al residual step-off along the articular surface with slight relative widening of the dorsal side of the joint space. IMPRESSION: 1. Closed reduction and percutaneous pin fixation of an intra-articular fracture at the base of the r ight fifth distal phalanx. See procedure note for further detail. Reviewed, dictated and finalized at location B. PER TANK STORAGE IMPRESSION: 1. Closed reduction and percutaneous pin fixation of an intra-articular fractur e at the base of the right fifth distal phalanx. See procedure note for further detail.
--- NOTE | 2021-01-21 07:33 | WPDHPUPDATE1 ---
History and Physical Update Update Date/Time: 01/21/21 07:33 History and Physical has been reviewed, including an updated exam of the patient. There are NO changes in the patient's condition. Risks, benefits, and alternatives have been discussed and questions answered. Patient agrees to proceed with procedure.
[2021-01-21] MEDS: KETOROLAC 30 MG/ML VIAL (*BKC) IV PUSH (12:01)
[2021-01-21] MEDS: ceFAZolin 2 GM/D5W 50 ML 2 GM/50 ML BAG IVPB (12:06)
[2021-01-21] MEDS: LIDO 1%/EPINEPHRINE 1:100,000 50 ML VIAL 10 ML INFILTRATE (12:44)
--- NOTE | 2021-01-21 14:27 | P.OP_ITS ---
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 She was then taken to the operating room placed supine on the operating table. A time-out was held and confirmed. The extremity was prepped and draped in usual fashion. The digit was blocked with 1% lidocaine with epinephrine. 0.5% Marcaine plain was added to that at the termination of the case. No tourniquet was utilized. C-arm was brought to the operative table. The 0.035 in C-wire was driven retrograde from the tip of the finger across the the IP to the base of the middle phalanx. We were able to reduce the small degree of subluxation by that maneuver. This effort did not seem to move the large dorsal plate fragment at all. It was my intention to place a blocking pin through the dorsal fragment after elevating shaft. Placement the pin and was feasible but mobilization of the fragment was less and satisfactory. It appears the fragment does abut against the base of the shaft but the alignment of the articular surface could not be improved upon. Multiple fluoroscopic images were made. The longitudinal pin was cut short beneath the skin. The diagonal smaller interfragmentary pin was cut external to the skin and no cap was applied. The padded Band-Aid applied over that and glue was applied to tip of the finger. She is discharged with instructions in wound care and follow-up she has a prescription for hydrocodone 5/325 7. Tourniquet Time 0 Drains No Packing No Pathology none sent Complications No immediate complications Condition stable Disposition same day
== END 2021-01-21 14:40 | disposition home or self-care (01) ==
PROVIDERS: PCP Internal Medicine; Visit Provider Plastic Surgery
PROC: (CPT 26756; principal; 2021-01-21 12:15)
DX: S62.636A Displaced fracture of distal phalanx of right little finger, initial encounter for closed fracture (principal); M20.011 Mallet finger of right finger(s); W22.8XXA Striking against or struck by other objects, initial encounter
CPT/HCPCS: 26756; A9270; C1713; J0690; J1885

== ENCOUNTER 2021-03-01 16:59 | Outpatient (CLI) | payer MEDICARE, SELFPAY ==
--- NOTE | ~2021-03-01 | XR_ITS ---
EXAMINATION: XR finger 5th RT min 2V DATE: 03/01/2021 17:24 INDICATION: Bony mallet finger (fracture) with internal fixation. TECHNIQUE: 3 views of right hand fifth digit were obtained. COMPARISON: Right hand fifth digit radiographs 01/12/2021, 12/07/20 FINDINGS: There is a fracture of dorsal base of fifth metatarsal involving 60% of the articular surfa ce with 1 mm dorsal displacement of the dorsal fracture fragment. Fixation is seen with a single wire . No visible callus. There is mild osteoarthritis of fifth metacarpophalangeal joint and moderate ost eoarthritis of the proximal and distal interphalangeal joints. IMPRESSION: 1. Fracture of dorsal base of fifth distal phalanx with wire fixation. Reviewed, dictated and finalized at location A. BLOCK ARTIST
== END 2021-03-01 17:00 | disposition home or self-care (01) ==
PROVIDERS: PCP Internal Medicine; Visit Provider Plastic Surgery
DX: S62.636D Displaced fracture of distal phalanx of right little finger, subsequent encounter for fracture with routine healing (principal); X58.XXXD Exposure to other specified factors, subsequent encounter
CPT/HCPCS: 73140

== ENCOUNTER → 2021-10-20 13:56 | Outpatient (CLI) | payer MEDICARE, SELFPAY ==
--- NOTE | ~2021-10-20 | MM_ITS ---
EXAMINATION: MM screening sondra BI w jarred HISTORY: Screening mammogram TECHNIQUE: Craniocaudal and mediolateral oblique 3-D tomosynthesis images were obtained and synthetic 2-D images were generated. CAD analysis was submitted and interpreted. COMPARISON: 07/14/2020, 04/05/2019, 03/04/2018 bilateral screening mammogram examinations BREAST PARENCHYMAL COMPOSITION: There are scattered areas of fibroglandular density. FINDINGS: There are bilateral mammographic asymmetries. Bilateral diagnostic mammography is recommend ed, with ultrasound if required. IMPRESSION: 1. Bilateral mammographic asymmetries 2. Bilateral diagnostic mammography is recommended, with ultrasound if required BI-RADS Category 0: Incomplete: Needs additional imaging evaluation. Reviewed, dictated and finalized at location A.
== END ==
PROVIDERS: PCP Internal Medicine; Visit Provider Obstetrics & Gynecology
DX: Z12.31 Encounter for screening mammogram for malignant neoplasm of breast (principal); R92.8 Other abnormal and inconclusive findings on diagnostic imaging of breast
CPT/HCPCS: 77063; 77067

== ENCOUNTER → 2021-11-19 14:26 | Outpatient (CLI) | payer MEDICARE, SELFPAY ==
--- NOTE | ~2021-11-19 | MMUS_ITS ---
EXAMINATION: MM diagnostic sondra BI w jarred, US breast BI limited HISTORY: Bilateral asymmetries on screening mammogram TECHNIQUE: Additional 3-D tomosynthesis images of the breasts were performed and synthetic 2-D images were generated. CAD analysis was submitted and interpreted. High resolution limited bilateral breast ultrasound was performed. COMPARISON: 10/20/2021, 07/14/2020, 04/05/2019 FINDINGS: MAMMOGRAPHIC FINDINGS: There is a return to baseline fibroglandular appearance with spot compression of the breasts in the a reas questioned on screening mammogram. ULTRASOUND: Right breast: There is a 3 mm round hypoechoic mass at the 2:00 location near the nipple with no post erior features or internal vascularity. 2 mm masses with similar sonographic features are present at the 3:00 location 3 cm from the nipple and the 4:00 location 1 cm from the nipple Left breast: There is a 2 mm cyst at the 10:00 location 2 cm from the nipple. A 2 mm cyst is also see n at 8:00 location 2 cm from the nipple. IMPRESSION: 1. Probably benign right breast masses. 2. Recommend 6 month follow-up right diagnostic mammogram and ultrasound. BI-RADS category 3, probably benign findings. Reviewed, dictated and finalized at location A. IMPRESSION: 1. Probably benign right breast masses. 2. Recommend 6 month follow-up right diagnostic mammogram and ultrasound. BI-RADS category 3, probably benign findings.
== END ==
PROVIDERS: PCP Internal Medicine; Visit Provider Obstetrics & Gynecology
DX: R92.8 Other abnormal and inconclusive findings on diagnostic imaging of breast (principal)
CPT/HCPCS: 76642; 77062; 77066; G0279

== ENCOUNTER 2021-12-12 15:42 | Emergency (ER) | payer MEDICARE, SELFPAY ==
[2021-12-12 16:01] VITALS: BP 114/59; PULSE 65; RESP 16; TEMP 35.6; O2SAT 99
[2021-12-12 16:03] VITALS: BP 114/59; PULSE 65; RESP 16; TEMP 35.6; O2SAT 99
--- NOTE | 2021-12-12 16:30 | ED.URI ---
HPI - URI/Sore Throat General Chief Complaint: Upper Respiratory Infection Stated Complaint: Cough, Wheezing Time Seen by Provider: 12/12/21 16:15 Source: patient Mode of arrival: ambulatory Limitations: no limitations History of Present Illness HPI Narrative: Ms. Quiroz is a 76-year-old female patient presenting to clinic today with complaints of cough and wheezing x 5 days. she reports that she has has some white frothy sputum but in the morning it is yellow tinged. She denies any fever or chills. She denies any shortness of breath MD elicited complaint: cough Related Data Home Medications Medication Instructions Recorded Confirmed cholecalciferol (vitamin D3) 50 50 mcg PO DAILY 02/25/20 12/12/21 mcg (2,000 unit) capsule pantoprazole 40 mg tablet,delayed 40 mg PO QAM PRN REFULX 02/25/20 12/12/21 release alendronate 70 mg tablet 70 mg PO WEEKLY 09/03/20 12/12/21 calcium carbonate 600 mg calcium 600 mg PO DAILY 01/15/21 12/12/21 (1,500 mg) tablet (Calcium) magnesium 200 mg tablet 400 mg PO DAILY 01/15/21 12/12/21 collagen (bovine) 100 % topical 1 ea topical DIRECTED 03/12/21 12/12/21 powder in packet famotidine 20 mg tablet 20 mg PO DAILY 12/12/21 12/12/21 Allergies Allergy/AdvReac Type Severity Reaction Status Date / Time ciprofloxacin [From Cipro] Allergy Intermediate Swelling-INTO Verified 12/12/21 15:59 2ND WEEK ON ABX oxycodone AdvReac Intermediate Nausea and Verified 12/12/21 15:59 Vomiting propoxyphene AdvReac Intermediate Nausea Verified 12/12/21 15:59 gemfibrozil AdvReac Unknown Nausea Verified 12/12/21 15:59 Sulfa (Sulfonamide AdvReac Unknown Rash Verified 12/12/21 15:59 Antibiotics) Review of Systems Review of Systems: Pertinent positives per HPI. Patient denies any fever, chills, rash, headache, visual changes, dizziness, shortness of breath, chest pain, palpitations, nausea, vomiting, diarrhea, constipation, abdominal pain, or any urinary issues. PMFSH Past Medical History Medical History Abnormal carotid ultrasound Cervicalgia Complete tear of left rotator cuff Fibromyalgia Personal history of transient ischemic attack (TIA), and cerebral infarction without residual deficits Polyosteoarthritis, unspecified Screening for breast cancer Screening for colon cancer Spinal stenosis of lumbar region Stroke Surgical History Surgical History History of bilateral carpal tunnel release History of colon resection History of shoulder surgery Hx of appendectomy Previous back surgery Family History Family History Mother Hypertension Sibling Patient's sister is in good health Patient's brother is in good health Family history of alcoholism Cerebrovascular accident Alcoholism Cancer Hypertension Depression Father Family history of pancreatic cancer Patient's father is Alcoholism Social History Social History Smoking packs per day: 0.25 Smoking cigarettes per day: 5.0 Years smoked: 8 Smoking pack-years: 2.00 Smoking status: Former smoker Tobacco type: cigarettes Second hand tobacco smoke exposure: No Smoking end date: 11/01/78 Alcohol intake: never Substance use: never Substance use type: does not use Additional living arrangements comments: 31 YR OLD GRANDSON (NADIA) LIVES WITH PT Gender identity (if verbalized by the patient): Female Spiritual care concerns: No Comments At the time of my signature, I reviewed and agree with the nursing past medical, surgical, social, and family history. There is no relevant family history pertinent to the patient complaint. Exam Narrative: General: Well-developed, well nourished, in no apparent distress Head: Normocephal
== END 2021-12-12 16:42 | disposition home or self-care (01) ==
PROVIDERS: Emergency Provider Nurse Practitioner Family; PCP Internal Medicine
DX: J40 Bronchitis, not specified as acute or chronic (principal); Z20.822 Contact with and (suspected) exposure to COVID-19; Z87.891 Personal history of nicotine dependence; M79.7 Fibromyalgia; M48.061 Spinal stenosis, lumbar region without neurogenic claudication; Z86.73 Personal history of transient ischemic attack (TIA), and cerebral infarction without residual deficits; M15.9 Polyosteoarthritis, unspecified
CPT/HCPCS: 87426; 87804; 99213; C9803; G0463

== ENCOUNTER 2021-12-19 16:45 | Emergency (ER) | payer MEDICARE, SELFPAY ==
--- NOTE | ~2021-12-19 | XR_ITS ---
EXAMINATION: XR chest 2V Exam Date/Time: 12/19/2021 17:30 [employer] HISTORY: cough x 11 days non smoker Comparison: 08/19/2020. RESULT: Lines, tubes, and devices: Cholecystectomy clips. Lungs and pleura: Senescent change and bibasilar scar. Cardiomediastinal silhouette: Stable. Other: No acute osseous or upper abdominal finding. IMPRESSION: No acute cardiopulmonary process. Reviewed, dictated and finalized at location [facility]. [employer]
[2021-12-19 17:03] VITALS: BP 118/65; PULSE 72; RESP 16; TEMP 36.3; O2SAT 98
--- NOTE | 2021-12-19 17:05 | ED.FEMALEGU ---
HPI - Female Genitourinary General Chief complaint: Upper Respiratory Infection Stated complaint: uri/sob/cough Time Seen by Provider: 12/19/21 17:18 Source: patient Mode of arrival: ambulatory Limitations: no limitations History of Present Illness HPI Narrative: 76-year-old female presents with concern for any possible UTI. She reports that she is having urinary incontinence, frequency and dysuria. She reports she has a history of urine incontinence for which she receives Botox injections into her bladder. Reports the last round of Botox injections was not effective and she continues to have incontinence for several months, she reports she started having dysuria 2 days ago. She denies back pain, abdominal pain, nausea, vomiting, fever. She reports general malaise. She reports, however she has had upper respiratory symptoms for 11 days. She was treated with azithromycin, steroids and inhaler 8 days ago. She reports she continues to have cough and chest congestion. MD elicited complaint: UTI Related Data Home Medications Medication Instructions Recorded Confirmed cholecalciferol (vitamin D3) 50 50 mcg PO DAILY 02/25/20 12/12/21 mcg (2,000 unit) capsule alendronate 70 mg tablet 70 mg PO WEEKLY 09/03/20 12/12/21 calcium carbonate 600 mg calcium 600 mg PO DAILY 01/15/21 12/12/21 (1,500 mg) tablet (Calcium) magnesium 200 mg tablet 400 mg PO DAILY 01/15/21 12/12/21 collagen (bovine) 100 % topical 1 ea topical DIRECTED 03/12/21 12/12/21 powder in packet famotidine 20 mg tablet 20 mg PO DAILY 12/12/21 12/12/21 Allergies Allergy/AdvReac Type Severity Reaction Status Date / Time ciprofloxacin [From Cipro] Allergy Intermediate Swelling-INTO Verified 12/19/21 16:53 2ND WEEK ON ABX oxycodone AdvReac Intermediate Nausea and Verified 12/19/21 16:53 Vomiting propoxyphene AdvReac Intermediate Nausea Verified 12/19/21 16:53 gemfibrozil AdvReac Unknown Nausea Verified 12/19/21 16:53 Sulfa (Sulfonamide AdvReac Unknown Rash Verified 12/19/21 16:53 Antibiotics) Review of Systems Review of Systems: CONSTITUTIONAL: Reports malaise. Denies chills, sweats, or fever. EYES: Denies visual changes, redness, or discharge. ENT: Denies rhinorrhea, congestion, sinus pain, otalgia or sore throat. CARDIOVASCULAR: Denies chest pain, palpitations, or edema. RESPIRATORY: Reports cough and chest congestion. Denies shortness of breath GASTROINTESTINAL: Denies abdominal pain, nausea, vomiting, diarrhea, bloody, or mucous stools. GENITOURINARY: Reports dysuria, urine incontinence. Denies urgency or hematuria. SKIN: Denies rash or itching. MUSCULOSKELETAL: Denies back pain, joint pain, or myalgia. NEUROLOGIC: Denies numbness, weakness, or headache. All systems reviewed & are unremarkable except as noted in HPI and below PMFSH Past Medical History Medical History Abnormal carotid ultrasound Cervicalgia Complete tear of left rotator cuff Fibromyalgia Personal history of transient ischemic attack (TIA), and cerebral infarction without residual deficits Polyosteoarthritis, unspecified Screening for breast cancer Screening for colon cancer Spinal stenosis of lumbar region Stroke Surgical History Surgical History History of bilateral carpal tunnel release History of colon resection History of shoulder surgery Hx of appendectomy Previous back surgery Family History Family History Mother Hypertension Sibling Patient's sister is in good health Patient's brother is in good health Family history of alcoholism Cerebrovascular accident Alcoholism Cancer Hypertension Depression Father Family history of pancreatic cancer Patient's father is Alcoholism Social History Social History (Reviewed 12/12/21
== END 2021-12-19 18:04 | disposition home or self-care (01) ==
PROVIDERS: Emergency Provider Nurse Practitioner; PCP Internal Medicine
DX: R30.0 Dysuria (principal); R06.02 Shortness of breath; Z87.891 Personal history of nicotine dependence
CPT/HCPCS: 71046; 81003; 87086; 87088; 99213; G0463

== ENCOUNTER 2022-01-13 18:37 | Emergency (ER) | payer MEDICARE, SELFPAY ==
[2022-01-13 18:46] VITALS: BP 109/61; PULSE 71; RESP 18; TEMP 36.2; O2SAT 99
--- NOTE | 2022-01-13 19:19 | ED.URI ---
HPI - URI/Sore Throat General Chief Complaint: Upper Respiratory Infection Stated Complaint: Sore Throat Time Seen by Provider: 01/13/22 19:20 Source: patient and RN notes reviewed Mode of arrival: ambulatory Limitations: no limitations History of Present Illness HPI Narrative: [age] year old Female presents concerned reports 5 day history of runny nose, sore throat, ear pressure when she swallows. She denies known sick contacts. She denies fever, aches, chills, sweats, cough shortness of breath. MD elicited complaint: sore throat and rhinorrhea Related Data Home Medications Medication Instructions Recorded Confirmed cholecalciferol (vitamin D3) 50 50 mcg PO DAILY 02/25/20 01/13/22 mcg (2,000 unit) capsule alendronate 70 mg tablet 70 mg PO WEEKLY 09/03/20 01/13/22 calcium carbonate 600 mg calcium 600 mg PO DAILY 01/15/21 01/13/22 (1,500 mg) tablet (Calcium) magnesium 200 mg tablet 400 mg PO DAILY 01/15/21 01/13/22 icosapent ethyl 1 gram capsule 1 g PO TID 01/13/22 01/13/22 (Vascepa) Allergies Allergy/AdvReac Type Severity Reaction Status Date / Time ciprofloxacin [From Cipro] Allergy Intermediate Swelling-INTO Verified 01/13/22 18:56 2ND WEEK ON ABX oxycodone AdvReac Intermediate Nausea and Verified 01/13/22 18:56 Vomiting propoxyphene AdvReac Intermediate Nausea Verified 01/13/22 18:56 gemfibrozil AdvReac Unknown Nausea Verified 01/13/22 18:56 Sulfa (Sulfonamide AdvReac Unknown Rash Verified 01/13/22 18:56 Antibiotics) Review of Systems Review of Systems: CONSTITUTIONAL: Denies malaise, chills, sweats, or fever. EYES: Denies visual changes, redness, or discharge. ENT: Reports rhinorrhea, scratchy throat, ear fullness when she swallows. Denies congestion, sinus pain CARDIOVASCULAR: Denies chest pain, palpitations, or edema. RESPIRATORY: Denies cough. Denies dyspnea. GASTROINTESTINAL: Denies abdominal pain, nausea, vomiting, diarrhea SKIN: Denies rash or itching. MUSCULOSKELETAL: Denies myalgia. NEUROLOGIC: Reports intermittent frontal headache. All systems reviewed & are unremarkable except as noted in HPI and below PMFSH Past Medical History Medical History Abnormal carotid ultrasound Cervicalgia Complete tear of left rotator cuff Fibromyalgia Personal history of transient ischemic attack (TIA), and cerebral infarction without residual deficits Polyosteoarthritis, unspecified Screening for breast cancer Screening for colon cancer Spinal stenosis of lumbar region Stroke Surgical History Surgical History History of bilateral carpal tunnel release History of colon resection History of shoulder surgery Hx of appendectomy Previous back surgery Family History Family History Mother Hypertension Sibling Patient's sister is in good health Patient's brother is in good health Family history of alcoholism Cerebrovascular accident Alcoholism Cancer Hypertension Depression Father Family history of pancreatic cancer Patient's father is Alcoholism Social History Social History Smoking packs per day: 0.25 Smoking cigarettes per day: 5.0 Years smoked: 8 Smoking pack-years: 2.00 Smoking status: Former smoker Tobacco type: cigarettes Second hand tobacco smoke exposure: No Smoking end date: 11/01/78 Alcohol intake: never Substance use: never Substance use type: does not use Additional living arrangements comments: 32 [address] [facility] [facility] ([facility] LIVES WITH PT Gender identity (if verbalized by the patient): Female Spiritual care concerns: No Comments At time of signature, agree with nursing past medical, surgical, social and family history. There is no relevant family history pert
== END 2022-01-13 19:35 | disposition home or self-care (01) ==
PROVIDERS: Emergency Provider Nurse Practitioner; PCP Internal Medicine
DX: J01.90 Acute sinusitis, unspecified (principal); Z87.891 Personal history of nicotine dependence; M79.7 Fibromyalgia; Z86.73 Personal history of transient ischemic attack (TIA), and cerebral infarction without residual deficits; I25.2 Old myocardial infarction; M15.9 Polyosteoarthritis, unspecified; M48.061 Spinal stenosis, lumbar region without neurogenic claudication
CPT/HCPCS: 99213; G0463

== ENCOUNTER → 2022-05-27 14:23 | Outpatient (CLI) | payer MEDICARE, SELFPAY ==
--- NOTE | ~2022-05-27 | MMUS_ITS ---
EXAMINATION: MM diagnostic sondra RT w jarred, US breast RT limited HISTORY: Six-month follow-up of probable benign right breast masses TECHNIQUE: ML, MLO and CC 3-D tomosynthesis images of the right breast were performed and synthetic 2 -D images were generated. CAD analysis was submitted and interpreted. High resolution targeted right o'clock, 3:00 and 4:00 breast ultrasound was performed. COMPARISON: 11/19/2021 diagnostic right mammogram and limited right breast ultrasound 10/20/2021 bilateral screening mammogram BREAST PARENCHYMAL COMPOSITION: There are scattered areas of fibroglandular density. FINDINGS: MAMMOGRAPHIC FINDINGS: No suspicious mass, architectural distortion, malignant calcification, skin thickening or retraction or significant new or developing density of the right breast is detected. ULTRASOUND: 2:00 subareolar: Antiparallel mildly irregular hypoechoic lesion measuring approximately 2.5 x 3.1 x 3.2 mm. No internal vascularity is noted. No posterior features. Ultrasound-guided biopsy is recommen ded due to the irregular margins and antiparallel configuration. 3:00 3 cm from nipple: 2.2 x 1.8 x 2.6 mm antiparallel mildly irregular circumscribed hypoechoic lesi on without internal vascularity. Due to the antiparallel configuration and mildly irregular margins, ultrasound-guided biopsy is recommended 4:00 1 cm from nipple: Circumscribed 2.2 x 2.3 x 1.8 mm hypoechoic lesion without internal vascularit y, with some posterior enhancement, likely a small cyst IMPRESSION: 1. Small mildly irregular and typed parallel hypoechoic lesions of right breast at 2:00 subareolar ar ea and 3:00 3 cm from the nipple. 2. Ultrasound-guided biopsy of the 2:00 subareolar and 3:00 3 cm from nipple lesions should be consid ered. However, considering the patient's age of 77 years, depending upon the patient's condition, one might consider 6 month follow-up targeted breast ultrasound imaging. BI-RADS category 4, suspicious findings. Reviewed, dictated and finalized at location [facility]. IMPRESSION: 1. Small mildly irregular and typed parallel hypoechoic lesions of right breast at 2:00 subareolar area and 3:00 3 cm from the nipple. 2. Ultrasound-guided biopsy of the 2:00 subareolar and 3:00 3 cm from nipple le sions should be considered. However, considering the patient's age of 77 years, depending upon the patient's condition, one might consider 6 month follow-up t argeted breast ultrasound imaging. BI-RADS category 4, suspicious findings.
== END ==
PROVIDERS: PCP Internal Medicine; Visit Provider Obstetrics & Gynecology
DX: R92.8 Other abnormal and inconclusive findings on diagnostic imaging of breast (principal); N64.9 Disorder of breast, unspecified
CPT/HCPCS: 76642; 77061; 77065; G0279

== ENCOUNTER → 2022-07-19 13:21 | Outpatient (CLI) | payer MEDICARE, SELFPAY ==
--- NOTE | ~2022-07-19 | DEXA_ITS ---
Bone Density Report Name: BERNARD REID Age: 77 Sex: Female Ethnicity: White Date of : 1945 Indication: monitoring treatment; postmenopausal Referring Provider: Roxanna Hawkins Study: Bone densitometry was performed. Exam Date: July 19, 2022 Accession number: [id number] Bone Density: Region BMD T-score Z-score Classification AP Spine (L1-L4) 1.255 1.9 4.4 Normal Femoral Neck (Left) 0.635 -1.9 0.2 Osteopenia Total Hip (Left) 0.873 -0.6 1.3 Normal Femoral Neck (Right) 0.696 -1.4 0.8 Osteopenia Total Hip (Right) 0.934 -0.1 1.8 Normal Total Hip Mean 0.904 -0.4 1.6 Normal World Health Organization criteria for BMD impression classify patients as: Normal (T-score at or above -1.0), Osteopenia (T-score between -1.0 and -2.5), or Osteoporosis (T-score at or below -2.5). 10-year Fracture Risk: FRAX not reported because: Treated for osteoporosis Previous Exams: Region Exam Age BMD T-score BMD Change BMD Change Date g/cm2 vs Baseline vs Previous AP Spine(L1-L4) 07/19/2022 77 1.255 1.9 0.153* 0.130* 03/08/2018 73 1.125 0.7 0.023* 0.048* 02/03/2016 71 1.077 0.3 -0.025* 0.029* 10/23/2013 68 1.048 0.0 -0.054* -0.027* 09/26/2011 66 1.075 0.3 -0.027* -0.017 08/21/2009 64 1.092 0.4 -0.010 0.033* 08/15/2007 62 1.059 0.1 -0.043* -0.043* 08/05/2005 60 1.102 0.5 Total Hip(Left) 07/19/2022 77 0.873 -0.6 -0.054* -0.005 03/08/2018 73 0.878 -0.5 -0.049* 0.015 02/03/2016 71 0.863 -0.6 -0.063* 0.007 10/23/2013 68 0.856 -0.7 -0.071* 0.032* 09/26/2011 66 0.823 -1.0 -0.103* -0.064* 08/21/2009 64 0.888 -0.4 -0.039* -0.022 08/15/2007 62 0.910 -0.3 -0.017 -0.017 08/05/2005 60 0.927 -0.1 Total Hip(Right) 07/19/2022 77 0.934 -0.1 -0.075* 0.003 03/08/2018 73 0.931 -0.1 -0.078* 0.012 02/03/2016 71 0.920 -0.2 -0.089* 0.007 10/23/2013 68 0.913 -0.2 -0.096* 0.046* 09/26/2011 66 0.867 -0.6 -0.142* -0.094* 08/21/2009 64 0.962 0.2 -0.047* -0.013 08/15/2007 62 0.975 0.3 -0.034* -0.034* 08/05/2005 60 1.009 0.5 *Denotes significance at 95% confidence level, LSC for AP Spine = 0.022 g/cm2, LSC for Total Hip = 0.027 g/cm2
== END ==
PROVIDERS: PCP Obstetrics & Gynecology; Visit Provider Obstetrics & Gynecology
DX: M85.80 Other specified disorders of bone density and structure, unspecified site (principal); Z78.0 Asymptomatic menopausal state
CPT/HCPCS: 77080

== ENCOUNTER 2022-10-19 16:27 | Emergency (ER) | payer MEDICARE, SELFPAY ==
--- NOTE | 2022-10-19 16:35 | ED.FEMALEGU ---
HPI - Female Genitourinary General Chief complaint: Urogenital-Female Stated complaint: UTI Time Seen by Provider: 10/19/22 16:29 Source: patient Mode of arrival: ambulatory Limitations: no limitations History of Present Illness HPI Narrative: Patient is a 77-year-old female who presents with 2-3 days of urinary urgency, burning with urination and odor. Denies any low back pain, fever, chills, nausea, vomiting, diarrhea. States she gets frequent UTIs. MD elicited complaint: dysuria Related Data Home Medications Medication Instructions Recorded Confirmed cholecalciferol (vitamin D3) 50 50 mcg PO DAILY 02/25/20 10/19/22 mcg (2,000 unit) capsule alendronate 70 mg tablet 70 mg PO WEEKLY 09/03/20 10/19/22 calcium carbonate 600 mg calcium 600 mg PO DAILY 01/15/21 10/19/22 (1,500 mg) tablet (Calcium) magnesium 200 mg tablet 400 mg PO DAILY 01/15/21 10/19/22 vibegron 75 mg tablet (Gemtesa) 75 mg PO DAILY 03/29/22 10/19/22 Allergies Allergy/AdvReac Type Severity Reaction Status Date / Time ciprofloxacin [From Cipro] Allergy Intermediate Swelling-INTO Verified 10/04/22 13:11 2ND WEEK ON ABX oxycodone AdvReac Intermediate Nausea and Verified 10/04/22 13:11 Vomiting propoxyphene AdvReac Intermediate Nausea Verified 10/04/22 13:11 gemfibrozil AdvReac Unknown Nausea Verified 10/04/22 13:11 Sulfa (Sulfonamide AdvReac Unknown Rash Verified 10/04/22 13:11 Antibiotics) Review of Systems Review of Systems: All systems reviewed & are unremarkable except as noted in HPI and below Constitutional: Constitutional: Denies chills, Denies fever(s), Denies headache(s), Denies malaise and Denies weakness Eyes: Eyes: Denies change in vision, Denies eye discharge and Denies irritation ENT: Denies otalgia, Denies headache(s), Denies nasal congestion, Denies nasal discharge, Denies sinus pain and Denies sore throat Cardiovascular: Cardiovascular: Denies chest pain, Denies edema, Denies palpitations and Denies dyspnea Respiratory: Respiratory: Denies cough and Denies dyspnea Gastrointestinal: Gastrointestinal: Denies abdominal pain, Denies diarrhea, Denies nausea and Denies vomiting Genitourinary: Genitourinary: Denies hematuria, Reports dysuria, Denies flank pain, Reports urinary urgency and Reports other (Urine odor) Musculoskeletal: Musculoskeletal: Denies back pain and Denies numbness Integumentary/Breasts: Skin/Breast: Denies pruritus and Denies rash Neurologic: Denies headache(s), Denies numbness and Denies weakness Psychiatric: Psychiatric: Reports no additional psychiatric complaints Endocrine: Endocrine: Denies palpitations PMFSH Past Medical History Medical History Abnormal carotid ultrasound Cervicalgia Complete tear of left rotator cuff Fibromyalgia Personal history of transient ischemic attack (TIA), and cerebral infarction without residual deficits Polyosteoarthritis, unspecified Screening for breast cancer Screening for colon cancer Spinal stenosis of lumbar region Stroke Surgical History Surgical History History of bilateral carpal tunnel release History of colon resection History of shoulder surgery Hx of appendectomy Previous back surgery Family History Family History Mother Hypertension Sibling Patient's sister is in good health Patient's brother is in good health Family history of alcoholism Cerebrovascular accident Alcoholism Cancer Hypertension Depression Father Family history of pancreatic cancer Patient's father is Alcoholism Social History Social History Smoking packs per day: 0.25 Smoking cigarettes per day: 5.0 Years smoked: 8 Smoking pack-years: 2.00 Smoking status: Former smoker Tobacco type: cigarette
[2022-10-19 16:56] VITALS: BP 109/61; PULSE 59; RESP 16; TEMP 35.8; O2SAT 99
== END 2022-10-19 17:53 | disposition home or self-care (01) ==
PROVIDERS: Emergency Provider Nurse Practitioner Family; PCP Family Medicine
DX: N30.00 Acute cystitis without hematuria (principal); Z87.891 Personal history of nicotine dependence; M79.7 Fibromyalgia; M13.0 Polyarthritis, unspecified; M48.061 Spinal stenosis, lumbar region without neurogenic claudication; Z86.73 Personal history of transient ischemic attack (TIA), and cerebral infarction without residual deficits
CPT/HCPCS: 81003; 87077; 87086; 87186; 99213; G0463

== ENCOUNTER 2022-12-18 20:38 | Emergency (ER) | payer MEDICARE, SELFPAY ==
--- NOTE | ~2022-12-18 | CT_ITS ---
CT of the Abdomen and Pelvis: Indication: Epigastric pain Technique: 2.5 mm axial scans were obtained through the abdomen and pelvis following intravenous adm inistration of 100 cc of Omnipaque 350. Dose reduction technique was used on this scan by utilizing a utomated exposure control and iterative reconstruction technique. The dose-length product (DLP) was 3 71.24 mGy-cm. COMPARISON: 06/14/2020 Findings: Scans through the lung bases are unremarkable. The liver, spleen, pancreas, adrenals and kidneys are within normal limits. Cholecystectomy clips are present. There are atherosclerotic calcifications of the aorta. No lymphadenopathy. Questionable minimal wall thickening of the distal large bowel versus underdistention. No bowel obstr uction. There is no evidence to suggest acute appendicitis. Right colonic anastomosis noted. Images through the pelvis were performed. Urinary bladder unremarkable. No adnexal mass seen. No asci ray. Impression: Questionable minimal wall thickening of distal large bowel versus underdistention. Correlate clinical ly for infectious/inflammatory colitis. Reviewed, dictated and finalized at [facility]. 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 Correlate clinically for infectious/inflammatory colitis.
[2022-12-18 21:04] VITALS: BP 126/56; PULSE 70; RESP 18; TEMP 36.3; O2SAT 99
--- NOTE | 2022-12-18 21:33 | ECG_ITS ---
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
[2022-12-18 21:44] LABS: Basophils Absolute Auto 0.1 K/mm3 (0.0-0.1); Basophils Percent Auto 0.9 % (0.2-1.2); Eosinophils Absolute Auto 0.1 K/mm3 (0-0.3); Eosinophils Percent Auto 1.3 % (0-4.4); Hematocrit 39.2 % (37.0-47.0); Hemoglobin 12.9 g/dL (12.0-15.0); Immature Granulocyte Absolute 0.02 K/mm3 (0.00-0.031); Immature Granulocyte Percent A 0.4 % (0-0.5); Lymphocytes Percent Auto 44.3 % (18.3-44.2); Mean Corpuscular HGB Conc 32.9 g/dl (32-36); Mean Corpuscular Hemoglobin 30.6 pg (26-34); Mean Corpuscular Volume 93.1 fl (80-100); Monocytes Absolute Auto 0.4 K/mm3 (0.1-0.6); Monocytes Percent Auto 6.5 % (2.6-8.5); Neutrophils Absolute Auto 2.5 K/mm3 (1.3-6.7); Neutrophils Percent Auto 46.6 % (45.5-73.1); Platelet Count Result 238 k/mm3 (150-375); Red Blood Count 4.21 M/mm3 (4.2-5.4); White Blood Count 5.4 K/mm3 (4.5-10.0)
[2022-12-18 21:59] LABS: Alanine Aminotransferase 87 U/L (6-35); Albumin Level 4.1 g/dL (3.5-5.1); Alkaline Phosphatase 41 U/L (38-126); Anion Gap 1 mmol/L (8-16); Aspartate Amino Transferase 77 U/L (14-36); Bilirubin,Total 0.8 mg/dL (0.2-1.3); Blood Urea Nitrogen 11 mg/dL (7-17); Calcium 9.3 mg/dL (8.4-10.2); Carbon Dioxide 31 mmol/L (22-30); Chloride 102 mmol/L (98-107); Estimated CRCL calculation 58 ml/min; Estimated Glomerular Filt Rate > 60; Glucose 111 mg/dL (65-110); Lipase 95 U/L (23-300); Potassium 4.1 mmol/L (3.4-5.0); Sodium 134 mmol/L (137-145)
[2022-12-18 22:50] LABS: Appearance Urine Clear (Clear); Bacteria Urine None Seen /hpf; Bilirubin Urine Negative (Negative); Blood Urine Negative (Negative); Color Urine Yellow (Yellow); Glucose Urine UA Negative (Negative); Ketones Urine Negative (Negative); Leukocyte Esterase Ur Trace LEU/UL (Negative); Nitrate Urine Negative (Negative); Non Pathogenic Casts 0-2; Protein Urine Negative (Negative); RBC Urine 0-2 /hpf (0-2); Specific Grav Ur 1.012 (1.001-1.035); Squamous Epithelial Cell Urine None seen /hpf (Few); Urobilinogen Urine 0.2 mg/dL (<2.0); WBC Urine 0-5 /hpf; pH Urine 5.5 (5.0-9.0)
[2022-12-18 22:57] LABS: Add Urine Microscopic? YES
[2022-12-18 23:23] VITALS: BP 133/59; PULSE 65; RESP 13; O2SAT 100
--- NOTE | 2022-12-18 23:45 | ED.ABDPAIN ---
HPI - Abdominal Pain General Chief Complaint: Abdominal Pain <SAMEERA Zuniga Last Filed: 12/19/22 18:16> Stated Complaint: epigastric pain/back pain, nausea <SAMEERA Zuniga Last Filed: 12/19/22 18:16> Time Seen by Provider: 12/18/22 23:10 <Geno Kaur PA-C - Last Filed: 12/19/22 18:16> Source: patient <SAMEERA Zuniga Last Filed: 12/19/22 18:16> Mode of arrival: ambulatory <SAMEERA Zuniga Last Filed: 12/19/22 18:16> Limitations: no limitations <SAMEERA Zuniga Last Filed: 12/19/22 18:16> History of Present Illness HPI narrative: This is a 77-year-old female that presents to the emergency department for epigastric abdominal pain ongoing over the last week. reports associated with nausea. Pain is worse with eating. She has been taking her Omeprazole with little relief. Does report some diarrhea. Denies fever, vomiting, hematochezia or melena. <SAMEERA Zuniga Last Filed: 12/19/22 18:16> Related Data Home Medications: Home Medications Medication Instructions Recorded Confirmed cholecalciferol (vitamin D3) 50 50 mcg PO DAILY 02/25/20 10/25/22 mcg (2,000 unit) capsule alendronate 70 mg tablet 70 mg PO WEEKLY 09/03/20 10/25/22 calcium carbonate 600 mg calcium 600 mg PO DAILY 01/15/21 10/25/22 (1,500 mg) tablet (Calcium) magnesium 200 mg tablet 400 mg PO DAILY 01/15/21 10/25/22 vibegron 75 mg tablet (Gemtesa) 75 mg PO DAILY 03/29/22 10/25/22 <SAMEERA Zuniga Last Filed: 12/19/22 18:16> Allergies/Adverse Reactions: Allergies Allergy/AdvReac Type Severity Reaction Status Date / Time ciprofloxacin [From Cipro] Allergy Intermediate Swelling-INTO Verified 10/25/22 16:36 2ND WEEK ON ABX oxycodone AdvReac Intermediate Nausea and Verified 10/25/22 16:36 Vomiting propoxyphene AdvReac Intermediate Nausea Verified 10/25/22 16:36 gemfibrozil AdvReac Unknown Nausea Verified 10/25/22 16:36 Sulfa (Sulfonamide AdvReac Unknown Rash Verified 10/25/22 16:36 Antibiotics) <Geno Kaur PA-C - Last Filed: 12/19/22 18:16> Review of Systems Review of Systems: CONSTITUTIONAL: Denies fever GASTROINTESTINAL: Reports abdominal pain, nausea, and diarrhea. GENITOURINARY: Denies dysuria <Geno Kaur PA-C - Last Filed: 12/19/22 18:16> All systems reviewed & are unremarkable except as noted in HPI and below <Geno Kaur PA-C - Last Filed: 12/19/22 18:16> [facility] Past Medical History Medical History: Medical History (Updated 12/19/22 @ 03:53 by Vera Kimball MD) Abnormal carotid ultrasound Benign positional vertigo Cervicalgia Complete tear of left rotator cuff Fibromyalgia Personal history of transient ischemic attack (TIA), and cerebral infarction without residual deficits Polyosteoarthritis, unspecified Screening for breast cancer Screening for colon cancer Spinal stenosis of lumbar region Stroke <Geno Kaur PA-C - Last Filed: 12/19/22 18:16> Surgical History Surgical History: Surgical History History of bilateral carpal tunnel release History of colon resection History of shoulder surgery Hx of appendectomy Previous back surgery <Geno Kaur PA-C - Last Filed: 12/19/22 18:16> Family History Family History: Family History Mother Hypertension Sibling Patient's sister is in good health Patient's brother is in good health Family history of alcoholism Cerebrovascular accident Alcoholism Cancer Hypertension Depression Father Family history of pancreatic cancer Patient's father is Alcoholism <Geno Kaur PA-C - Last Filed: 12/19/22 18:16> Social History Social History: Social History Social History: 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
[2022-12-18] MEDS: FAMOTIDINE 20 MG/2 ML VIAL IV PUSH (23:54)
[2022-12-18] MEDS: ONDANSETRON INJ 4 MG/2 ML VIAL IV PUSH (23:54)
[2022-12-19 00:10] LABS: Troponin I < 0.012 ng/mL (0.000-0.034)
[2022-12-19 01:47] VITALS: BP 121/60; PULSE 61; RESP 12; O2SAT 98
== END 2022-12-19 04:58 | disposition home or self-care (01) ==
PROVIDERS: Physician Assistant; Emergency Provider Emergency Medicine; PCP Family Medicine
DX: R10.13 Epigastric pain (principal); Z86.73 Personal history of transient ischemic attack (TIA), and cerebral infarction without residual deficits; Z87.891 Personal history of nicotine dependence
CPT/HCPCS: 36415; 74177; 80053; 81001; 83690; 84484; 85025; 93005; 96374; 96375; 99284; J2405; Q9967

== ENCOUNTER 2023-02-14 14:20 | Emergency (ER) | payer MEDICARE, SELFPAY ==
--- NOTE | 2023-02-14 14:41 | ED.FEMALEGU ---
HPI - Female Genitourinary General Chief complaint: Abdominal Pain Stated complaint: Abdominal Pain/Fever Time Seen by Provider: 02/14/23 14:22 Source: patient Mode of arrival: ambulatory Limitations: no limitations History of Present Illness HPI Narrative: Patient is a 78-year-old female that presents with diffuse abdominal pain, fever of 100.4, urinary frequency and urgency for 4 days. Patient denies any nausea, vomiting, diarrhea, low back pain. Patient has had frequent UTIs. Patient has a urologist but has not been seen in over year. Patient has primary appointment in March. Patient has history of diverticulitis with bowel resection MD elicited complaint: dysuria Related Data Home Medications Medication Instructions Recorded Confirmed cholecalciferol (vitamin D3) 50 50 mcg PO DAILY 02/25/20 02/14/23 mcg (2,000 unit) capsule alendronate 70 mg tablet 70 mg PO WEEKLY 09/03/20 02/14/23 calcium carbonate 600 mg calcium 600 mg PO DAILY 01/15/21 02/14/23 (1,500 mg) tablet (Calcium) magnesium 200 mg tablet 400 mg PO DAILY 01/15/21 02/14/23 vibegron 75 mg tablet (Gemtesa) 75 mg PO DAILY 03/29/22 02/14/23 donepezil 5 mg tablet 5 mg PO HS 02/14/23 02/14/23 Allergies Allergy/AdvReac Type Severity Reaction Status Date / Time ciprofloxacin [From Cipro] Allergy Intermediate Swelling-INTO Verified 02/14/23 14:38 2ND WEEK ON ABX oxycodone AdvReac Intermediate Nausea and Verified 02/14/23 14:38 Vomiting propoxyphene AdvReac Intermediate Nausea Verified 02/14/23 14:38 gemfibrozil AdvReac Unknown Nausea Verified 02/14/23 14:38 Sulfa (Sulfonamide AdvReac Unknown Rash Verified 02/14/23 14:38 Antibiotics) Review of Systems Review of Systems: All systems reviewed & are unremarkable except as noted in HPI and below Constitutional: Constitutional: Denies chills, Denies fever(s), Denies headache(s), Denies malaise and Denies weakness Eyes: Eyes: Denies change in vision, Denies eye discharge and Denies irritation ENT: Denies otalgia, Denies headache(s), Denies nasal congestion, Denies nasal discharge, Denies sinus pain and Denies sore throat Cardiovascular: Cardiovascular: Denies chest pain, Denies edema, Denies palpitations and Denies dyspnea Respiratory: Respiratory: Denies cough and Denies dyspnea Gastrointestinal: Gastrointestinal: Reports abdominal pain, Denies diarrhea, Denies nausea and Denies vomiting Genitourinary: Genitourinary: Denies hematuria, Reports nocturia, Reports dysuria, Denies flank pain and Reports urinary urgency Musculoskeletal: Musculoskeletal: Denies back pain and Denies numbness Integumentary/Breasts: Skin/Breast: Denies pruritus and Denies rash Neurologic: Denies headache(s), Denies numbness and Denies weakness Psychiatric: Psychiatric: Reports no additional psychiatric complaints Endocrine: Endocrine: Denies palpitations PMFSH Past Medical History Medical History Abnormal carotid ultrasound Benign positional vertigo Cervicalgia Complete tear of left rotator cuff Fibromyalgia Personal history of transient ischemic attack (TIA), and cerebral infarction without residual deficits Polyosteoarthritis, unspecified Screening for breast cancer Screening for colon cancer Spinal stenosis of lumbar region Stroke Surgical History Surgical History History of bilateral carpal tunnel release History of colon resection History of shoulder surgery Hx of appendectomy Previous back surgery Family History Family History Mother Hypertension Sibling Patient's sister is in good health Patient's brother is in good health Family history of alcoholism Cerebrovascular accident Alcoholism Cancer Hypertension Depression Father Family history of pancreatic cancer Patient's father is Jamarcus
[2023-02-14 14:46] VITALS: BP 113/41; PULSE 74; RESP 16; TEMP 36.8; O2SAT 98
== END 2023-02-14 15:23 | disposition home or self-care (01) ==
PROVIDERS: Emergency Provider Nurse Practitioner Family; PCP Family Medicine
DX: R30.0 Dysuria (principal); R35.0 Frequency of micturition; Z86.73 Personal history of transient ischemic attack (TIA), and cerebral infarction without residual deficits; F17.210 Nicotine dependence, cigarettes, uncomplicated
CPT/HCPCS: 81003; 87086; 99213; G0463

== ENCOUNTER → 2023-02-23 12:39 | Outpatient (CLI) | payer MEDICARE, SELFPAY ==
--- NOTE | ~2023-02-23 | CT_ITS ---
CT of the Abdomen and Pelvis: Indication: Abdominal pain Technique: 2.5 mm axial scans were obtained through the abdomen and pelvis following intravenous adm inistration of 100 cc of Omnipaque 350. Dose reduction technique was used on this scan by utilizing a utomated exposure control and iterative reconstruction technique. The dose-length product (DLP) was 4 90.29 mGy-cm. COMPARISON: 12/19/2022 Findings: Scans through the lung bases are unremarkable. The liver, spleen, pancreas, adrenals and kidneys are within normal limits. Cholecystectomy clips are present. There are atherosclerotic calcifications of the aorta. No lymphadenopathy. No bowel obstruction or bowel wall thickening. Duodenal diverticulum noted. There is no evidence to s uggest acute appendicitis. Images through the pelvis were performed. Questionable urinary bladder wall thickening versus underdi stention. No pelvic mass. No ascites. Impression: Probable urinary bladder wall thickening. Correlate for cystitis. Reviewed, dictated and finalized at [facility]. 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 Correlate for cystitis.
[2023-02-23 14:29] LABS: Estimated Glomerular Filt Rate > 60
== END ==
PROVIDERS: PCP Family Medicine; Visit Provider Urology
DX: R10.9 Unspecified abdominal pain (principal); R10.84 Generalized abdominal pain
CPT/HCPCS: 74177; Q9967

== ENCOUNTER 2023-02-24 21:06 | Emergency (ER) | payer MEDICARE, SELFPAY ==
[2023-02-24 21:08] VITALS: BP 109/80; PULSE 106; RESP 16; TEMP 36.4; O2SAT 100
[2023-02-24 21:26] LABS: Basophils Percent Auto 0.5 % (0.2-1.2); Eosinophils Absolute Auto 0.1 K/mm3 (0-0.3); Eosinophils Percent Auto 1.4 % (0-4.4); Hematocrit 40.1 % (37.0-47.0); Hemoglobin 12.9 g/dL (12.0-15.0); Immature Granulocyte Absolute 0.01 K/mm3 (0.00-0.031); Immature Granulocyte Percent A 0.1 % (0-0.5); Lymphocytes Absolute Auto 1.32 K/mm3 (0.9-3.2); Lymphocytes Percent Auto 15.5 % (18.3-44.2); Mean Corpuscular HGB Conc 32.2 g/dl (32-36); Mean Corpuscular Hemoglobin 30.7 pg (26-34); Mean Corpuscular Volume 95.5 fl (80-100); Mean Platelet Volume 9.7 fl (7.4-10.4); Monocytes Absolute Auto 0.3 K/mm3 (0.1-0.6); Monocytes Percent Auto 3.1 % (2.6-8.5); Neutrophils Absolute Auto 6.8 K/mm3 (1.3-6.7); Neutrophils Percent Auto 79.4 % (45.5-73.1); Platelet Count Result 265 k/mm3 (150-375); Red Cell Distribution Width 13.2 % (11.5-14.5); White Blood Count 8.5 K/mm3 (4.5-10.0)
[2023-02-24 21:41] LABS: Alanine Aminotransferase 32 U/L (6-35); Alkaline Phosphatase 50 U/L (38-126); Anion Gap 5 mmol/L (8-16); Aspartate Amino Transferase 55 U/L (14-36); Bilirubin,Total 0.8 mg/dL (0.2-1.3); Blood Urea Nitrogen 13 mg/dL (7-17); Carbon Dioxide 24 mmol/L (22-30); Chloride 107 mmol/L (98-107); Estimated CRCL calculation 50 ml/min; Estimated Glomerular Filt Rate > 60; Glucose 105 mg/dL (65-110); Lipase 113 U/L (23-300); Potassium 4.2 mmol/L (3.4-5.0); Sodium 136 mmol/L (137-145)
[2023-02-24 23:08] VITALS: BP 122/80; PULSE 86; RESP 15; O2SAT 100
[2023-02-24 23:47] LABS: Appearance Urine Cloudy (Clear); Bacteria Urine None Seen /hpf; Bilirubin Urine Negative (Negative); Blood Urine Negative (Negative); Color Urine Dark Yellow (Yellow); Glucose Urine UA Negative (Negative); Ketones Urine 2+ mg/dL (Negative); Leukocyte Esterase Ur Negative LEU/UL (Negative); Need Manual Microscopic Reviewed; Nitrate Urine Negative (Negative); Protein Urine 1+ mg/dL (Negative); Specific Grav Ur 1.029 (1.001-1.035); Squamous Epithelial Cell Urine Few /hpf (Few); Urobilinogen Urine 0.2 mg/dL (<2.0); WBC Urine 0-5 /hpf
[2023-02-24 23:55] LABS: Add Urine Microscopic? YES
[2023-02-25] MEDS: ONDANSETRON INJ 4 MG/2 ML VIAL IV PUSH (00:01)
[2023-02-25] MEDS: KETOROLAC 15 MG/ML VIAL (*BKC) IV PUSH (00:02)
[2023-02-25 01:18] LABS: Toxigenic C. Diff NEGATIVE (NEGATIVE)
--- NOTE | 2023-02-25 02:12 | ED.GENADULT ---
HPI - General Adult General Chief complaint: Abdominal Pain Stated complaint: abd pain Time Seen by Provider: 02/24/23 22:45 History of Present Illness HPI narrative: This is a 78-year-old female presenting with abdominal pain and diarrhea. The abdominal pain is diffuse throughout her abdomen sharp stabbing and intermittent. She has had multiple episodes of diarrhea. Patient has also had some nausea and vomiting. She denies fever chills chest pain difficulty breathing. She has had recent recurrent UTIs and has recently completed a course of cefdinir. She denies any history of C diff. Related Data Home Medications Medication Instructions Recorded Confirmed cholecalciferol (vitamin D3) 50 50 mcg PO DAILY 02/25/20 02/14/23 mcg (2,000 unit) capsule alendronate 70 mg tablet 70 mg PO WEEKLY 09/03/20 02/14/23 calcium carbonate 600 mg calcium 600 mg PO DAILY 01/15/21 02/14/23 (1,500 mg) tablet (Calcium) magnesium 200 mg tablet 400 mg PO DAILY 01/15/21 02/14/23 vibegron 75 mg tablet (Gemtesa) 75 mg PO DAILY 03/29/22 02/14/23 donepezil 5 mg tablet 5 mg PO HS 02/14/23 02/14/23 Allergies Allergy/AdvReac Type Severity Reaction Status Date / Time ciprofloxacin [From Cipro] Allergy Intermediate Swelling-INTO Verified 02/14/23 14:38 2ND WEEK ON ABX oxycodone AdvReac Intermediate Nausea and Verified 02/14/23 14:38 Vomiting propoxyphene AdvReac Intermediate Nausea Verified 02/14/23 14:38 gemfibrozil AdvReac Unknown Nausea Verified 02/14/23 14:38 Sulfa (Sulfonamide AdvReac Unknown Rash Verified 02/14/23 14:38 Antibiotics) [facility] Past Medical History Medical History Abnormal carotid ultrasound Benign positional vertigo Cervicalgia Complete tear of left rotator cuff Fibromyalgia Personal history of transient ischemic attack (TIA), and cerebral infarction without residual deficits Polyosteoarthritis, unspecified Screening for breast cancer Screening for colon cancer Spinal stenosis of lumbar region Stroke Surgical History Surgical History History of bilateral carpal tunnel release History of colon resection History of shoulder surgery Hx of appendectomy Previous back surgery Family History Family History Mother Hypertension Sibling Patient's sister is in good health Patient's brother is in good health Family history of alcoholism Cerebrovascular accident Alcoholism Cancer Hypertension Depression Father Family history of pancreatic cancer Patient's father is Alcoholism Social History Social History Social History: Caffeine- coffee daily Smoking packs per day: 0.25 Smoking cigarettes per day: 5.0 Years smoked: 8 Smoking pack-years: 2.00 Smoking status: Former smoker Tobacco type: cigarettes Second hand tobacco smoke exposure: No Smoking end date: 11/01/78 Alcohol intake: never Substance use: never Substance use type: does not use Lack of Transportation: No Lack of Food: Never True Current Housing: I Have Housing Concerned About Future Housing: No Difficulty Paying Gas/Electric Bills: No Difficulty Paying for Meds: No Currently Unemployed: No Education: High School Diploma/GED Difficulty w/ Childcare or Family Care: No Living arrangements: with family Additional living arrangements comments: 31 YR OLD GRANDSON ([place]) LIVES WITH PT Gender identity (if verbalized by the patient): Female Spiritual care concerns: No Exam Narrative: APPEARANCE: No apparent distress. Head: atraumatic. EYES: EOMI, NOSE: Atraumatic NECK: Trachea midline RESPIRATORY: No increased rate of breathing, CTAB CARDIOVASCULAR: RRR, no peripheral edema ABDOMINAL: Non-distended, soft nontender no guarding or rebound MUSCULO
[2023-02-25] MEDS: SODIUM CHLORIDE 0.9% IV 1,000 ML 999 ML IV CONT (03:05)
[2023-02-25 03:07] VITALS: BP 116/50; PULSE 90; RESP 15; O2SAT 100
[2023-02-25 04:04] LABS: Influenza A QL RT-PCR Negative (Negative); Influenza B QL RT-PCR Negative (Negative); RSV RNA, RT-PCR Negative (Negative); SARS-CoV-2 RNA PCR Negative (Negative)
[2023-02-25 04:53] VITALS: BP 108/56; PULSE 88; RESP 15; O2SAT 99
== END 2023-02-25 04:54 | disposition home or self-care (01) ==
PROVIDERS: Emergency Provider Emergency Medicine; PCP Family Medicine
DX: R11.2 Nausea with vomiting, unspecified (principal); R19.7 Diarrhea, unspecified; Z20.822 Contact with and (suspected) exposure to COVID-19; M79.7 Fibromyalgia; M19.90 Unspecified osteoarthritis, unspecified site; Z86.73 Personal history of transient ischemic attack (TIA), and cerebral infarction without residual deficits; Z87.440 Personal history of urinary (tract) infections; Z87.891 Personal history of nicotine dependence; Z90.49 Acquired absence of other specified parts of digestive tract
CPT/HCPCS: 36415; 80053; 81001; 83690; 85025; 87493; 87637; 96361; 96374; 96375; 99284; J1885; J2405; J7030

== ENCOUNTER 2023-10-30 15:16 | Outpatient (CLI) | payer MEDICARE, SELFPAY ==
--- NOTE | ~2023-10-30 | XR_ITS ---
EXAM: XR shoulder RT min 2V DATE: 10/30/2023 15:29 HISTORY: M25.519 - Pain in unspecified shoulder . COMPARISON: None available. FINDINGS: Decreased mineralization. No fracture or dislocation. No lytic or blastic lesion. Multiple degenerative subchondral cysts in the humeral head. Moderate AC joint and mild glenohumeral joint de generative change. Inferiorly directed osteophytes at the AC joint. Inferiorly directed osteophyte/en thesophyte over the mid/distal clavicle, both of which could contribute to osseous outlet compromise. Subacromial narrowing. No erosion or periosteal change. Soft tissues within normal limits. IMPRESSION: Moderate AC joint and mild glenohumeral joint osteoarthritis. Likely rotator cuff patholo gy with osseous outlet compromise. Reviewed, dictated and finalized at location K. IMPRESSION: Moderate AC joint and mild glenohumeral joint osteoarthritis. Likel y rotator cuff pathology with osseous outlet compromise.
== END 2023-10-30 15:17 | disposition home or self-care (01) ==
LOC: ANHIMG 15:19
PROVIDERS: PCP Family Medicine; Visit Provider Family Medicine
DX: M19.011 Primary osteoarthritis, right shoulder (principal)
CPT/HCPCS: 73030

== ENCOUNTER 2024-01-01 14:32 | Outpatient (CLI) | payer MEDICARE, SELFPAY ==
--- NOTE | ~2024-01-01 | MM_ITS ---
EXAMINATION: MM screening [facility] BI w jarred HISTORY: Screening mammogram TECHNIQUE: Craniocaudal and mediolateral oblique 3-D tomosynthesis images were obtained and synthetic 2-D images were generated. CAD analysis was submitted and interpreted. COMPARISON: 05/27/2022, 10/20/2021, 07/14/2020 BREAST PARENCHYMAL COMPOSITION:Not Dense. There are scattered areas of fibroglandular density. FINDINGS: No suspicious mass, calcification, or architectural distortion are identified in either arturo ast to suggest malignancy. There has been no suspicious interval change. IMPRESSION: No mammographic evidence of malignancy. Recommend routine screening mammography in one year. BI-RADS Category 1: Negative Reviewed, dictated and finalized at location . [employer]
== END 2024-01-01 14:33 | disposition home or self-care (01) ==
PROVIDERS: PCP Family Medicine; Visit Provider Obstetrics & Gynecology
DX: Z12.31 Encounter for screening mammogram for malignant neoplasm of breast (principal)
CPT/HCPCS: 77063; 77067

== ENCOUNTER 2024-04-14 14:41 | Emergency (ER) | payer MEDICARE, SELFPAY ==
[2024-04-14 14:44] VITALS: BP 120/49; PULSE 65; RESP 16; TEMP 36.6; O2SAT 100
[2024-04-14 15:29] LABS: Basophils Percent Auto 0.4 % (0.2-1.2); Hemoglobin 13.2 g/dL (12.0-15.0); Immature Granulocyte Absolute 0.05 K/mm3 (0.00-0.031); Immature Granulocyte Percent A 0.6 % (0-0.5); Lymphocytes Absolute Auto 1.79 K/mm3 (0.9-3.2); Mean Corpuscular HGB Conc 33.8 g/dl (32-36); Mean Corpuscular Hemoglobin 31.3 pg (26-34); Mean Corpuscular Volume 92.4 fl (80-100); Mean Platelet Volume 9.7 fl (7.4-10.4); Monocytes Absolute Auto 0.7 K/mm3 (0.1-0.6); Monocytes Percent Auto 7.4 % (2.6-8.5); Neutrophils Absolute Auto 6.4 K/mm3 (1.3-6.7); Neutrophils Percent Auto 71.6 % (45.5-73.1); Platelet Count Result 215 k/mm3 (150-375); Red Blood Count 4.22 M/mm3 (4.2-5.4); Red Cell Distribution Width 13.1 % (11.5-14.5); White Blood Count 8.9 K/mm3 (4.5-10.0)
[2024-04-14 15:38] LABS: Alanine Aminotransferase 29 U/L (6-35); Albumin Level 4.5 g/dL (3.5-5.1); Alkaline Phosphatase 46 U/L (38-126); Anion Gap 6 mmol/L (4-12); Aspartate Amino Transferase 28 U/L (14-36); Blood Urea Nitrogen 14 mg/dL (7-17); Calcium 9.8 mg/dL (8.4-10.2); Carbon Dioxide 30 mmol/L (22-30); Chloride 102 mmol/L (98-107); Estimated CRCL calculation 37 ml/min; Estimated Glomerular Filt Rate > 60; Glucose 91 mg/dL (65-110); Lipase 89 U/L (23-300); Potassium 3.8 mmol/L (3.4-5.0); Sodium 138 mmol/L (137-145)
--- NOTE | 2024-04-14 16:06 | ED.ABDPAIN ---
HPI - Abdominal Pain General Chief Complaint: Abdominal Pain Stated Complaint: LLQ pain Time Seen by Provider: 04/14/24 15:05 Source: patient Mode of arrival: ambulatory Limitations: no limitations History of Present Illness HPI narrative: This is a 79 year old female that presents to the ER for LLQ abdominal pain. Ongoing since last night. Reports history of diverticulitis. Denies fever, vomiting, dysuria. Related Data Home Medications ?Medication ?Instructions ?Recorded ?Confirmed ?Last Taken ?Type cholecalciferol (vitamin D3) 50 50 mcg PO DAILY 02/25/20 12/26/23 01/21/21 09:00 History mcg (2,000 unit) capsule calcium carbonate (Calcium 600) 600 mg PO DAILY 01/15/21 12/26/23 01/21/21 09:00 History magnesium 200 mg tablet 400 mg PO DAILY 01/15/21 12/26/23 01/20/21 History vibegron 75 mg tablet (Gemtesa) 75 mg PO DAILY 03/29/22 12/26/23 Unknown History donepezil 5 mg tablet 5 mg PO HS 02/14/23 12/26/23 Unknown History vit A 7,160 unit-C 113 mg-E 100 tablet PO 04/13/23 12/26/23 Unknown History ejep-acps-ggivmc tablet,delayed rel. biotin 1 mg capsule 1 mg PO DAILY 02/28/24 Unknown History cranberry fruit concentrate 250 mg 250 mg PO TID 02/28/24 Unknown History chewable tablet (Azo Cranberry) Allergies Allergy/AdvReac Type Severity Reaction Status Date / Time ciprofloxacin (From Cipro) Allergy Intermediate Swelling-INTO Verified 12/26/23 13:32 2ND WEEK ON ABX oxycodone AdvReac Intermediate Nausea and Verified 12/26/23 13:32 Vomiting propoxyphene AdvReac Intermediate Nausea Verified 12/26/23 13:32 gemfibrozil AdvReac Unknown Nausea Verified 12/26/23 13:32 Sulfa (Sulfonamide AdvReac Unknown Rash Verified 12/26/23 13:32 Antibiotics) Review of Systems Review of Systems: CONSTITUTIONAL: Denies fever GASTROINTESTINAL: Reports abdominal pain, and diarrhea. GENITOURINARY: Denies dysuria All systems reviewed & are unremarkable except as noted in HPI and below PMFSH Past Medical History Medical History Encounter for medication management Counseling on health promotion and disease prevention Generalized osteoarthritis of multiple sites Spinal stenosis OLIVIA positive Benign positional vertigo Stroke Screening for colon cancer Screening for breast cancer Abnormal carotid ultrasound Complete tear of left rotator cuff Personal history of transient ischemic attack (TIA), and cerebral infarction without residual deficits Polyosteoarthritis, unspecified Spinal stenosis of lumbar region Cervicalgia Fibromyalgia Surgical History Surgical History History of shoulder surgery History of bilateral carpal tunnel release Hx of appendectomy History of colon resection Previous back surgery Family History Family History Mother Hypertension Sibling Patient's sister is in good health Patient's brother is in good health Family history of alcoholism Cerebrovascular accident Alcoholism Cancer Hypertension Depression Father Family history of pancreatic cancer Patient's father is Alcoholism Social History Social History Social History: Caffeine- coffee daily Smoking packs per day: 0.25 Smoking cigarettes per day: 5.0 Years smoked: 8 Smoking pack-years: 2.00 Smoking status: Former smoker Tobacco type: cigarettes Second hand tobacco smoke exposure: No Smoking end date: 11/01/78 Alcohol intake: never Substance use: never Substance use type: does not use Do You Feel Safe in your Home?: Yes Lack of Transportation: No Lack of Food: Never True Current Housing: I Have Housing Concerned About Future Housing: No Difficulty Paying Gas/Electric Bills: No Difficulty Paying for Meds: No Currently Unemployed: No Education: High School Diploma/GED Difficulty w/ Childcare or Family Care: No Living arrangements: with family Additional living arrangements comments: 31 YR OLD GRANDSON ([place]DIA) LIVES WITH PT Gender identity (if verbalized by the patient): Female Spiritual care concerns: No Exam Narrative: GENERAL: Well-appearing, well-nourished, and in no acute distress. HEAD: Normocephalic, atraumatic. EYES: EOMI. CHEST: Clear to auscultation. No respiratory distress. No wheezes rales or rhonchi HEART: Regular rate and rhythm. No murmur heard. Normal peripheral pulses. ABDOMEN: Soft, nondistended, normal active bowel sounds. Tender to palpation in the left lower quadrant, without guarding EXTREMITIES: Normal range of motion. No edema. SKIN: Warm, dry, no rash. NEURO: No focal deficits. Alert and oriented x3. PSYCH: Normal mood and affect Course Course Emergency Course: Patient updated on her workup and agrees with plan of care Vital Signs Vital signs: Vital Signs Temperature 97.9 F 04/14/24 14:44 Pulse Rate 65 04/14/24 14:44 Respiratory Rate 16 04/14/24 14:44 Blood Pressure 120/49 L 04/14/24 14:44 Pulse Oximetry 100 04/14/24 14:44 Oxygen Delivery Room Air 04/14/24 14:44 Temperature 97.9 F 04/14/24 14:44 Pulse Rate 65 04/14/24 14:44 Respiratory Rate 16 04/14/24 14:44 Blood Pressure 120/49 L 04/14/24 14:44 Pulse Oximetry 100 04/14/24 14:44 Oxygen Delivery Room Air 04/14/24 14:44 MDM - Abdominal Pain MDM Narrative Medical decision making narrative: Patient presents to the emergency department for left lower quadrant abdominal pain. She is afebrile and nontoxic appearing. CBC without leukocytosis. Metabolic panel without concerning findings. Urine without signs of infection. CT abdomen and pelvis shows fat stranding in the area of the rectosigmoid junction, suggestive of focal diverticulitis. Patient updated on her workup, agrees with plan of care. Will be started on oral antibiotics. She is to follow up with primary provider. She was given warnings to return to the ER Differential Diagnosis Differential diagnosis: Likely calculus of kidney, constipation and diverticulitis Lab Data Attestation: I reviewed the patient's lab results. 04/14/24 15:16 04/14/24 15:16 Labs: Lab Results 04/14/24 Range/Units 15:16 WBC 8.9 (4.5-10.0) K/mm3 RBC 4.22 (4.2-5.4) M/mm3 Hgb 13.2 (12.0-15.0) g/dL Hct 39.0 (37.0-47.0) % MCV 92.4 (80-100) fl MCH 31.3 (26-34) pg MCHC 33.8 (32-36) g/dl RDW 13.1 (11.5-14.5) % Plt Count 215 (150-375) k/mm3 MPV 9.7 (7.4-10.4) fl Immature Gran % (Auto) 0.6 H (0-0.5) % Neut % (Auto) 71.6 (45.5-73.1) % Lymph % (Auto) 20.0 (18.3-44.2) % [place] % (Auto) 7.4 (2.6-8.5) % Eos % (Auto) 0.0 (0-4.4) % Baso % (Auto) 0.4 (0.2-1.2) % Lymph # (Auto) 1.79 (0.9-3.2) K/mm3 [place] # (Auto) 0.7 H (0.1-0.6) K/mm3 Eos # (Auto) 0.0 (0-0.3) K/mm3 Baso # (Auto) 0.0 (0.0-0.1) K/mm3 Abs Immat Gran (auto) 0.05 H (0.00-0.031) K/mm3 Absolute Neuts (auto) 6.4 (1.3-6.7) K/mm3 Absolute Nucleated RBC 0.000 (0.0-0.012) K/mm3 Nucleated RBC % 0.0 (0.0-0.2) % Sodium 138 (137-145) mmol/L Potassium 3.8 (3.4-5.0) mmol/L Chloride 102 (98-107) mmol/L Carbon Dioxide 30 (22-30) mmol/L Anion Gap 6 (4-12) mmol/L BUN 14 (7-17) mg/dL Creatinine 0.82 (0.7-1.0) mg/dL Estim Creat Clear Calc 37 ml/min Estimated GFR > 60 (59 - ) Glucose 91 (65-110) mg/dL Calcium 9.8 (8.4-10.2) mg/dL Total Bilirubin 1.0 (0.2-1.3) mg/dL AST 28 (14-36) U/L ALT 29 (6-35) U/L Alkaline Phosphatase 46 (38-126) U/L Total Protein 7.0 (6.3-8.2) g/dL Albumin 4.5 (3.5-5.1) g/dL Lipase 89 (23-300) U/L Urine Color Dark yellow (Yellow) Urine Appearance Clear (Clear) Urine pH 5.0 (5.0-9.0) Ur Specific [place] 1.029 (1.001-1.035) Urine Protein 1+ H (Negative) mg/dL Urine Glucose (UA) Negative (Negative) mg/dL Urine Ketones Trace H (Negative) mg/dL Ur Blood (Man) Negative (Negative) Urine Nitrate Negative (Negative) Urine Bilirubin 1+ H (Negative) Urine Urobilinogen 1.0 (<2.0) mg/dL Add Ur Microanalysis Reviewed Leukocyte Esterase Rfl Negative (Negative) MIN/UL Urine RBC 0-2 (0-2) /hpf Urine WBC 0-5 (0-3) /hpf Ur Squamous Epith Cells Few (Few) /hpf Urine Bacteria None seen /hpf Urine Casts 3-5 Imaging Data Radiologist's impression: ITS Impressions Abdomen/Pelvis CT 04/14/24 17:30 IMPRESSION: 1. Minimal fat stranding in the area of the rectosigmoid junction side suggestive of focal diverticulitis. Follow-up advised. Critical Care Time Critical Care Time Critical Care Time: No Discharge Plan Discharge Clinical Impression: Diverticulitis Patient Disposition: Home, Self-Care Condition: Stable Instructions: Antibiotic Form, Diverticulitis (ED), Diverticulitis Diet (ED) Additional Instructions: Return to the ER if you experience fever, worsening abdominal pain with nausea and vomiting, you are unable to keep down liquids or solids, or any other symptoms that are concerning to you Remain well hydrated. Take oral antibiotics as prescribed Follow up with primary care doctor Patient Language: Telugu Prescriptions: New amoxicillin-pot clavulanate 875-125 mg tablet 1 tablet PO Q8H 10 Days Qty: 30 0RF No Action donepezil 5 mg tablet 5 mg PO HS Gemtesa 75 mg tablet 75 mg PO DAILY biotin 1 mg capsule 1 mg PO DAILY Azo Cranberry 250 mg tablet,chewable 250 mg PO TID cholecalciferol (vitamin D3) 50 mcg (2,000 unit) capsule 50 mcg PO DAILY vitamins A,C,X-aopz-zgzlac 7,160-113-100 wqkq-hy-vqha tablet,delayed release (DR/EC) PO Linzess 72 mcg capsule 72 mcg PO DAILY Qty: 30 4RF calcium carbonate [Calcium 600] 600 mg calcium (1,500 mg) Tablet 600 mg PO DAILY magnesium 200 mg Tablet 400 mg PO DAILY icosapent ethyl [Vascepa] 1 gram capsule 1 g PO BID Qty: 270 2RF colesevelam 625 mg tablet See Rx Instructions .ROUTE .COMPLEX Qty: 540 3RF Dose Instruction: TAKE 3 TABLETS BY MOUTH TWICE DAILY Rx Instructions: TAKE 3 TABLETS BY MOUTH TWICE DAILY atenolol 25 mg tablet 25 mg PO DAILY Qty: 90 1RF rosuvastatin 20 mg tablet 20 mg PO DAILY Qty: 90 1RF hydroxychloroquine [Plaquenil] 200 mg tablet 400 mg PO DAILY Qty: 180 0RF duloxetine 60 mg capsule,delayed release(DR/EC) See Rx Instructions .ROUTE .COMPLEX Qty: 90 3RF Dose Instruction: TAKE 1 CAPSULE BY MOUTH DAILY Rx Instructions: TAKE 1 CAPSULE BY MOUTH DAILY Follow-up/Referrals: Migue Lennon MD [Primary Care Provider] -
[2024-04-14 16:44] LABS: Add Urine Microscopic? YES; Appearance Urine Clear (Clear); Bacteria Urine None Seen /hpf; Bilirubin Urine 1+ (Negative); Blood Urine Negative (Negative); Color Urine Dark Yellow (Yellow); Glucose Urine UA Negative (Negative); Ketones Urine Trace mg/dL (Negative); Leukocyte Esterase Ur Negative LEU/UL (Negative); Need Manual Microscopic Reviewed; Nitrate Urine Negative (Negative); Protein Urine 1+ mg/dL (Negative); RBC Urine 0-2 /hpf (0-2); Specific Grav Ur 1.029 (1.001-1.035); Squamous Epithelial Cell Urine Few /hpf (Few); WBC Urine 0-5 /hpf (0-3)
[2024-04-14] MEDS: AMOXICILLIN/CLAVULANATE K 875-125 MG TAB 1 TABLET PO (18:15)
[2024-04-14 18:37] VITALS: BP 124/68; PULSE 68; RESP 16; TEMP 36.6; O2SAT 100
== END 2024-04-14 18:39 | disposition home or self-care (01) ==
PROVIDERS: Emergency Provider Physician Assistant; PCP Family Medicine
DX: K57.32 Diverticulitis of large intestine without perforation or abscess without bleeding (principal); M79.7 Fibromyalgia; M19.90 Unspecified osteoarthritis, unspecified site; Z86.73 Personal history of transient ischemic attack (TIA), and cerebral infarction without residual deficits; Z87.891 Personal history of nicotine dependence; Z90.49 Acquired absence of other specified parts of digestive tract
CPT/HCPCS: 36415; 74177; 80053; 81001; 83690; 85025; 99284; A9270; Q9967

== ENCOUNTER 2024-05-14 13:02 | Outpatient (RCR) | payer MEDICARE, SELFPAY ==
[2024-05-14 13:30] VITALS: BMI 24.9
[2024-05-14 13:31] VITALS: BMI 24.9
== END 2024-05-14 15:36 | disposition home or self-care (01) ==
LOC: ANHDMC 13:02
PROVIDERS: PCP Family Medicine; Visit Provider Family Medicine
DX: I10 Essential (primary) hypertension (principal); E78.5 Hyperlipidemia, unspecified; R73.03 Prediabetes; Z71.3 Dietary counseling and surveillance
CPT/HCPCS: 97802

== ENCOUNTER 2024-07-30 13:47 | Outpatient (CLI) | payer MEDICARE, SELFPAY ==
--- NOTE | ~2024-07-30 | DEXA_ITS ---
Bone Density Report Name: BERNARD REID Age: 79 Sex: Female Ethnicity: White Date of : 1945 Indication: monitoring treatment; height loss; Referring Provider: JOANN SANDY Study: Bone densitometry was performed. Exam Date: July 30, 2024 Accession number: [id number] Bone Density: Region BMD T-score Z-score Classification AP Spine(L1-L4) 1.231 1.7 4.3 Normal Femoral Neck (Left) 0.594 -2.3 -0.1 Osteopenia Total Hip (Left) 0.872 -0.6 1.4 Normal Femoral Neck (Right) 0.674 -1.6 0.7 Osteopenia Total Hip (Right) 0.933 -0.1 1.9 Normal Total Hip Mean 0.903 -0.4 1.7 Normal World Health Organization criteria for BMD impression classify patients as: Normal (T-score at or above -1.0), Osteopenia (T-score between -1.0 and -2.5), or Osteoporosis (T-score at or below -2.5). 10-year Fracture Risk: FRAX not reported because: Premenopausal woman Treated for osteoporosis Previous Exams: -- Region Exam Age BMD T-score BMD Change BMD Change Date g/cm2 vs Baseline vs Previous -- AP Spine (L1-L4) 07/30/2024 79 1.231 1.7 11.8%* -1.9%* 07/19/2022 77 1.255 1.9 13.9%* 11.6%* 03/08/2018 73 1.125 0.7 2.1%* 4.5%* 02/03/2016 71 1.077 0.3 -2.3%* 2.8%* 10/23/2013 68 1.048 0.0 -4.9%* -2.5%* 09/26/2011 66 1.075 0.3 -2.4%* -1.6% 08/21/2009 64 1.092 0.4 -0.9% 3.1%* 08/15/2007 62 1.059 0.1 -3.9%* -3.9%* 08/05/2005 60 1.102 0.5 Total Hip(Left) 07/30/2024 79 0.872 -0.6 -5.9%* 0.0% 07/19/2022 77 0.873 -0.6 -5.8%* -0.6% 03/08/2018 73 0.878 -0.5 -5.3%* 1.7% 02/03/2016 71 0.863 -0.6 -6.9%* 0.9% 10/23/2013 68 0.856 -0.7 -7.7%* 3.9%* 09/26/2011 66 0.823 -1.0 -11.2%* -7.3%* 08/21/2009 64 0.888 -0.4 -4.2%* -2.5% 08/15/2007 62 0.910 -0.3 -1.8% -1.8% 08/05/2005 60 0.927 -0.1 Total Hip(Right) 07/30/2024 79 0.933 -0.1 -7.5%* -0.1% 07/19/2022 77 0.934 -0.1 -7.4%* 0.3% 03/08/2018 73 0.931 -0.1 -7.7%* 1.3% 02/03/2016 71 0.920 -0.2 -8.8%* 0.7% 10/23/2013 68 0.913 -0.2 -9.5%* 5.3%* 09/26/2011 66 0.867 -0.6 -14.0%* -9.8%* 08/21/2009 64 0.962 0.2 -4.7%* -1.4% 08/15/2007 62 0.975 0.3 -3.4%* -3.4%* 08/05/2005 60 1.009 0.5 -- *Denotes significance at 95% confidence level, LSC for AP Spine = 0.022 g/cm2, LSC for Total Hip = 0.027 g/cm2 Clinical Information Provided by Patient: Is being treated for osteoporosis Has used the following medications: Actonel (i.e. risedronate), Fosamax (i.e. alendronate), Vitamin D, Calcium Patient maximum height was 62 Menopause Age: 53 Drinks caffeinated beverages Onset of menses at age 13 Premenopausal Number of children 1 Impression: The patient's bone mass is within expected range for age, gender and ethnicity. The BMD for the AP Spine (L1-L4) decreased, changing by -1.9% since the last DXA exam. Discussion: SIGNIFICANT BONE LOSS OBSERVED. Adherence to therapy (including calcium and vitamin D intake) should be assessed. If compliance is not a factor, review management and exclusion of secondary causes of bone loss. It is important to ask patients whether they are taking their medications and to encourage continued and appropriate compliance with their osteoporosis therapies to reduce fracture risk. It is also important to review their risk factors and encourage appropriate calcium and vitamin D intakes, exercise, fall prevention and other lifestyle measures. Follow-Up: Consider a repeat BMD and Vertebral Fracture Assessment (VFA) exam in 2 years or sooner if medically necessary, to reassess this patient's status. Reported by: LANEY on 07/30/2024 2:09:00 PM. Reviewed, dictated and finalized at location A.
== END 2024-07-30 13:48 | disposition home or self-care (01) ==
LOC: MICIMG 13:48
PROVIDERS: PCP Family Medicine; Visit Provider Internal Medicine
DX: M85.852 Other specified disorders of bone density and structure, left thigh (principal); M85.851 Other specified disorders of bone density and structure, right thigh; Z78.0 Asymptomatic menopausal state
CPT/HCPCS: 77080

== ENCOUNTER 2025-01-01 13:42 | Outpatient (CLI) | payer MEDICARE, SELFPAY ==
--- NOTE | ~2025-01-01 | MM_ITS ---
EXAMINATION: MM screening sondra BI w jarred HISTORY: Screening TECHNIQUE: Craniocaudal and mediolateral oblique 3-D tomosynthesis images were obtained and synthetic 2-D images were generated. CAD analysis was submitted and interpreted. COMPARISON: Comparison to multiple prior studies sequentially, with oldest reviewed study dated , 03/08/2018 BREAST PARENCHYMAL COMPOSITION: Not Dense: There are scattered areas of fibroglandular density. FINDINGS: There is no evidence of suspicious mass, calcification, or architectural distortion to suggest malignancy in either breast. IMPRESSION: 1. No mammographic evidence of malignancy. 2. Recommend routine screening mammography in one year. BI-RADS Category 1: Negative Reviewed, dictated and finalized at location B. DOCTOR
== END 2025-01-01 13:43 | disposition home or self-care (01) ==
LOC: MICIMG 13:42
PROVIDERS: PCP Family Medicine; Visit Provider Obstetrics & Gynecology
DX: Z12.31 Encounter for screening mammogram for malignant neoplasm of breast (principal)
CPT/HCPCS: 77063; 77067

== ENCOUNTER 2025-01-01 14:27 | Outpatient (CLI) | payer MEDICARE, SELFPAY ==
--- NOTE | ~2025-01-01 | XR_ITS ---
XR lumbar spine min 4V Indication: systemic involvement of connective tissue, unspecified Comparison: None Findings: Moderate loss of vertebral height. No fracture or subluxation. Moderate to severe loss of disc height throughout. Soft tissues unremarkable Impression: No acute abnormality. Reviewed, dictated and finalized at location P. R GENERATION ENGINEER Impression: No acute abnormality.
--- NOTE | ~2025-01-01 | XR_ITS ---
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 Findings: No acute fracture or malalignment. Moderate degenerative changes Soft tissues unremarkable. Impression: No acute fracture or malalignment. Reviewed, dictated and finalized at location P. TING SIGN MACHINE OPERATOR Impression: No acute fracture or malalignment.
--- OUTSIDE RECORDS SUMMARY | 2025-01-01 22:07 | XMS_ITS | Encounter Summary ---
Author Organization [facility] Care Team Providers Care Route Cdl Driver Name Role Phone Jim Bain DO Primary Care Provider [phone] Migue Lennon MD Primary Care Provider [phone] Roxanna Hawkins MD Unavailable [phone] Xavier Coello MD Unavailable Ranjeet Varghese MD Unavailable [phone] Encounter Details Date Type Department Care Team (Latest Contact Info) Description 09/17/2015 Orders Only [facility] ProviderArely MD [address] [place] [id number] Social History Tobacco Use Types Packs/Day Years Used Date Smoking Tobacco: Former Comments Unknown Sex and Gender Information Value Date Recorded Sex Assigned at Not on file 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 us Historical Provider Final Res ult documented in this encounter Visit Diagnoses Not on filedocumented in this encounter Additional Health Concerns Infection Onset Date Last Indicated Resolved Time C. difficile suspected 12/11/2024 12/16/202412/12 7:26 PM CDT C. difficile suspected 12/16/2024 12/16/202412/16 2:28 PM SALES DEVELOPMENT MANAGER documented as of this encounter Care Teams Route Cdl Driver Relationship Specialty Start Date End Date Jim Bain DO PCP - General Internal Medicine 12/12/18 06/30/22 Migue Lennon MD PCP - General Family Practice 07/01/22 Roxanna Hakwins MD [address] [place] [address] Referring Physician Obstetrics and Gynecology 10/10/22 Xavier Coello MD [address] [place] [address] Consulting Physician Pain Management 11/16/22 Ranjeet Varghese MD [address] [place] [address] Consulting Physician Orthopedic Surgery 01/12/23 documented as of this encounter
--- OUTSIDE RECORDS SUMMARY | 2025-01-01 22:07 | XMS_ITS | Encounter Summary ---
Author Organization [facility] Facility Care Team Providers Care Manager Post Name Role Phone Jim Bain DO Primary Care Provider [phone] Migue Lennon MD Primary Care Provider [phone] Roxanna Hawkins MD Unavailable [phone] Xavier Coello MD Unavailable Ranjeet Varghese MD Unavailable [phone] Encounter Details Date Type Department Care Team (Latest Contact Info) Description 03/27/2015 Orders Only [facility] CLINCONV ProviderArely MD [address] [place] [address] Social History Tobacco Use Types Packs/Day Years Used Date Smoking Tobacco: Former Comments Unknown Sex and Gender Information Value Date Recorded Sex Assigned at Not on file 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 Gender Identity Not on file Sexual Orientation Not on file documented as of this encounter Plan of Treatment Not on file documented as of this encounter Procedures Procedure Name Priority Date/Time Associated Diagnosis Comments SCAN - LABS 03/30/2015 12:00 AM BLAST FURNACE KEEPER SCAN - LABS 03/30/2015 12:00 AM BLAST FURNACE KEEPER SCAN - LABS 03/27/2015 12:00 AM BLAST FURNACE KEEPER SCAN - LABS 03/27/2015 12:00 AM BLAST FURNACE KEEPER SCAN - LABS 03/27/2015 12:00 AM BLAST FURNACE KEEPER documented in this encounter Results * SCAN - LABS (03/30/2015 12:00 AM BLAST FURNACE KEEPER) Narrative 03/30/2015 12:00 AM BLAST FURNACE KEEPER Ordered by an unspecified provider. [facility] Provider MD Final Res ult * SCAN - LABS (03/30/2015 12:00 AM BLAST FURNACE KEEPER) Narrative 03/30/2015 12:00 AM BLAST FURNACE KEEPER Ordered by an unspecified provider. [facility] Provider Final Res ult * SCAN - LABS (03/27/2015 12:00 AM BLAST FURNACE KEEPER) Narrative 03/27/2015 12:00 AM BLAST FURNACE KEEPER Ordered by an unspecified provider. [facility] Provider Final Res ult * SCAN - LABS (03/27/2015 12:00 AM BLAST FURNACE KEEPER) Narrative 03/27/2015 12:00 AM BLAST FURNACE KEEPER Ordered by an unspecified provider. [facility] Provider Final Res ult * SCAN - LABS (03/27/2015 12:00 AM BLAST FURNACE KEEPER) Narrative 03/27/2015 12:00 AM BLAST FURNACE KEEPER Ordered by an unspecified provider. [facility] Provider Final Res ult documented in this encounter Visit Diagnoses Not on filedocumented in this encounter Additional Health Concerns Infection Onset Date Last Indicated Resolved Time C. difficile suspected 12/11/2024 12/16/202412/12 7:26 PM CDT C. difficile suspected 12/16/2024 12/16/202412/16 2:28 PM BLAST FURNACE KEEPER documented as of this encounter Care Teams Manager Post Relationship Specialty Start Date End Date Jim Bain DO PCP - General Internal Medicine 12/12/18 06/30/22 Migue Lennon MD PCP - General Family Practice 07/01/22 Roxanna Hawkins MD [address] [place] [address] Referring Physician Obstetrics and Gynecology 10/10/22 Xavier Coello MD [address] [place] [address] Consulting Physician Pain Management 11/16/22 Ranjeet Varghese MD [address] [facility] [facility] [place] [address] Consulting Physician Orthopedic Surgery 01/12/23 documented as of this encounter
--- OUTSIDE RECORDS SUMMARY | 2025-01-01 22:07 | XMS_ITS | Clinical Summary ---
Author Organization [facility] Address [address] [place] [address] Care Team Providers Care Adult Crossing Guard Name Role Phone Unavailable Primary Care Provider Unavailabl e Social History Tobacco Use Types Packs/Day Years Used Date Smoking Tobacco: Never Assessed Comments Unknown Sex and Gender Information Value Date Recorded Sex Assigned at Not on file Legal Sex Female 5:28 PM CDT Gender Identity Not on file Sexual Orientation Not on file Plan of Treatment Health Maintenance Due Date Last Done Comments Hepatitis C 01/18/1964 DTaP, Tdap and Td Vaccines ( 1 - Tdap) 1965 Pneumococcal Vaccine: 50+ Ye ars (1 of 1 - PCV) 01/18/1996 Zoster Vaccines (1 of 2) 01/18/1996 Dexa Scan (General) 2011 RSV Immunization or 60+ Years (1 - 1-dose 75+ series) 2021 COVID-19 Vaccine ( - 2024-2 6 season) 2024 Influenza Adult (#1) 2024 Hepatitis A Vaccines Aged Out No long er eligible based on patient's age to complete this topic Meningococcal B Vaccine Aged Out No l onger eligible based on patient's age to complete this topic Meningococcal Vaccine Aged Out No minna irvin eligible based on patient's age to complete this topic RSV Immunizations Under 20 Months Aged Out No longer eligible based on patient's age to complete this topic
--- OUTSIDE RECORDS SUMMARY | 2025-01-01 22:07 | XMS_ITS | Patient Health Record ---
Author Organization [facility] Address [address] [place] [address] Care Team Providers Care Package Handler Name Role Phone Migue Lennon MD Primary Care Provider Dior Troy Unavailable [phone] Allergies Allergen (clinical drug ingredient) Drug/Non Drug Allergy documented on EMR Reaction Allergy Type Onset Date Status Substance with sulfonamide structure and antibacterial mechanism of action (substance) SULFA (SULFONAMIDE ANTIBIOTICS) (uncoded) Unknown Allergy 06/30/2023 Active Ciprofloxacin Unknown Drug Allergy 06/30/2023 Ac tive gemfibrozil Gemfibrozil Unknown Drug Allergy 06/30/2023 Ac tive oxycodone Oxycodone Unknown Drug Allergy 06/30/2023 Active propoxyphene Propoxyphene Unknown Drug Allergy 06/30/2023 Active Reason For Referral No Information Medications Medication SIG (Take, Route, Frequency, Duration) Notes Start Date End Date Status Aricept 5 MG Tablet 1 tablet at bedtime Oral Once a day; Duration: 90 days 12/26/2024 Active DULoxetine HCl 60 MG Capsule Delayed Release Particles 1 capsule Oral Once a day; Duration: 90 days 12/26/2024 Active Linzess 72 mcg Capsule Oral 06/30/2023 Active Atenolol 25 MG Tablet Oral 06/30/2023 Active GEMTESA 75 MG TABLET *Reorder [facility] for eRx and Interaction Alerts* 06/30/2023 Active Welchol 625 MG Tablet 3 tablets with meals Orally Twice a day Active Vascepa 1 GM Capsule 2 capsules with meals Orally Twice a day Active Rosuvastatin Calcium 20 MG Tablet Oral 06/30/2023 Active Hydroxychloroquine Sulfate 200 MG Tablet Oral 06/30/2023 Active Prolia 60 MG/ML Solution Prefilled Syringe 1 mL Subcutaneous Activ e Social History Tobacco Use: Social History Observation Description Date Details (start date - stop date) Former Smoker NA - NA Sex Assigned At : Social History Observation Description Sex Assigned At Female Social History Miscellaneous: Social Info Question Answer Notes Advance Care Planning Advance Directive FULL CODE, Isaebl ing Will Tobacco Use: Social Info Question Answer Notes Tobacco Control (Standard) Tobacco use: Former smoker How long has it been since you last smoked? Greater than 10 years Additional Details Category Social Info Options Details Migrated Social History Migrated Social History Alcohol Intake: None 12/02/2022,Tobacco Years: Former smoker 12/02/2022 Problems Problem Type SNOMED Code ICD Code Onset Dates Problem Status W/U Status Risk Notes Problem Recurrent major depression in full remission (30089824) Major depressive disorder, recurrent, in full remission (F33.42) 06/30/19 Active confirmed Problem Generalized anxiety disorder (05828320) Generalized anxiety disorder (F41.1) 06/30/19 Active confirmed Problem Mild neurocognitive disorder (609696903) Mild neurocognitive disorder (G31.84) Active confirmed Vital Signs Heart Rate 65 /min 12/26/2024 Height-cm 154.94 cm 12/26/2024 Blood pressure diastolic 64 mm Hg 12/26/2024 Weight-kg 60.15 kg 12/26/2024 Height 61.00 in 12/26/2024 Blood pressure systolic 102 mm Hg 12/26/2024 Weight 132.6 lbs 12/26/2024 BMI 25.05 kg/m2 12/26/2024 Encounters Encounter Location Date Provider Diagnosis [facility] [employer] [address] [place] [address] [address] 06/27/2024 Dior Kent Negative depression screening Z13.31 ; Encounter for screening for cardiovascular disorders Z13.6 ; Generalized anxiety disorder F41.1 ; Mild neurocognitive disorder G31.84 and Major depressive disorder, recurrent, in full remission F33.42 [facility] [employer] [address] [address] 12/26/2024 Dior Kent Generalized anxiety disorder F41.1 ; Mild neurocognitive disorder G31.84 and Major depressive disorder, recurrent, in full remission F33.42 Assessments Encounter Date Diagnosis (ICD Code) Assessment Notes Treatment Notes Treatment Clinical Notes Section Notes 06/27/2024 Negative depression screening (ICD-10 - Z13.31) 12/26/2024 Generalized anxiety disorder (ICD-10 - F41.1) 12/26/2024 Mild neurocognitive disorder (ICD-10 - G31.84) 06/27/2024 Encounter for screening for cardiovascular disorders (ICD-10 - Z13.6) 12/26/2024 Major depressive disorder, recurrent, in full remission (ICD-10 - F33.42) SSRI/SNRI side effects discussed including but not limited to, gastric upset, nausea, vomiting, diarrhea and/or constipation, weight changes, sexual side effects including loss of libido, increased suicidal thoughts/behavi ors in children and young adults, and serotonin syndrome. 06/27/2024 Generalized anxiety disorder (ICD-10 - F41.1) 06/27/2024 Mild neurocognitive disorder (ICD-10 - G31.84) 06/27/2024 Major depressive disorder, recurrent, in full remission (ICD-10 - F33.42) SSRI/SNRI side effects discussed including but not limited to, gastric upset, nausea, vomiting, diarrhea and/or constipation, weight changes, sexual side effects including loss of libido, increased suicidal thoughts/behavi ors in children and young adults, and serotonin syndrome. 06/27/2024 Other Stable on current medication regimen, continue at current doses. -Refills sent in today -No concerns today Patient educated on all medications including potential benefits, side effects, risks. Educated on proper dosing schedule and importance of compliance. SLUMS completed today -Assessment and treatment plan reviewed with patient. -Compliance with treatment plan importance discussed. -Discussed the risks/benefits of this medication -Discussed medication side effects. -Contact office if symptoms worsen. -Discussed that it can take up to 6-8 weeks to see full therapeutic effects of psychotropic medications. -Crisis prevention hotline 988. 12/26/2024 Other Stable on current medication regimen, continue at current doses. -Refills sent in today -No concerns today Patient educated on all medications including potential benefits, side effects, risks. Educated on proper dosing schedule and importance of compliance. SLUMS next visit -Assessment and treatment plan reviewed with patient. -Compliance with treatment plan importance discussed. -Discussed the risks/benefits of this medication -Discussed medication side effects. -Contact office if symptoms worsen. -Discussed that it can take up to 6-8 weeks to see full therapeutic effects of psychotropic medications. -Crisis prevention hotline 448. Plan Of Treatment Next Appt Details Provider Name:Dior Kirti nunez, 06/25/2025 01:00:00 PM, [address], [address], [place], [address], Insurance Providers Payer Name Payer Address Payer Phone Subscriber Number Group Number Insured Name Patient Relationship to Insured Coverage Start Date Coverage End Date [employer] Medicare Replacement/ Advantage - Ppo [address] [address] [place] [address] [id number] ZOË REID Self - patient is the insured Medical (General) History Medical History History ICD Code Problems: Generalized anxiety disorder Mild neurocognitive disorder Neurocognitive disorder Recurrent major depression in full remis sachin , Surgical History Surgery Date(Month/Year) Appendectomy (50115) 02/13/1995
--- OUTSIDE RECORDS SUMMARY | 2025-01-01 22:07 | XMS_ITS | Encounter Summary ---
Author Organization [facility] Facility Care Team Providers Care Manager Payment Name Role Phone Jim Bain DO Primary Care Provider [phone] Migue Lennon MD Primary Care Provider [phone] Roxanna Hawkins MD Unavailable [phone] Xavier Coello MD Unavailable Ranjeet Varghese MD Unavailable [phone] Encounter Details Date Type Department Care Team (Latest Contact Info) Description 04/09/2015 Orders Only [facility] CLINCONV ProviderArely MD [address] [place] [address] Social History Tobacco Use Types Packs/Day Years Used Date Smoking Tobacco: Former Comments Unknown Sex and Gender Information Value Date Recorded Sex Assigned at Not on file Legal Sex Female 11:58 PM BLUE LEATHER SORTER Gender Identity Not on file Sexual Orientation Not on file documented as of this encounter Functional Status documented as of this encounter Plan of Treatment Not on file documented as of this encounter Procedures Procedure Name Priority Date/Time Associated Diagnosis Comments SCAN - LABS 04/09/2015 12:00 AM BLUE LEATHER SORTER PROCEDURE - RESULT 04/08/2015 12 :00 AM BLUE LEATHER SORTER documented in this encounter Results * SCAN - LABS (04/09/2015 12:00 AM BLUE LEATHER SORTER) Narrative 04/09/2015 12:00 AM BLUE LEATHER SORTER Ordered by an unspecified provider. Historical Provider Final Res ult * PROCEDURE - RESULT (04/08/2015 12:00 AM BLUE LEATHER SORTER) Narrative 04/08/2015 12:00 AM BLUE LEATHER SORTER Ordered by an unspecified provider. Historical Provider Final Res ult documented in this encounter Visit Diagnoses Not on filedocumented in this encounter Additional Health Concerns Infection Onset Date Last Indicated Resolved Time C. difficile suspected 12/11/2024 12/16/202412/12 7:26 PM CDT C. difficile suspected 12/16/2024 12/16/202412/16 2:28 PM BLUE LEATHER SORTER documented as of this encounter Care Teams Manager Payment Relationship Specialty Start Date End Date Jim Bain DO PCP - General Internal Medicine 12/12/18 06/30/22 Migue Lennon MD PCP - General Family Practice 07/01/22 Roxanna Hawkins MD [address] [place] [address] Referring Physician Obstetrics and Gynecology 10/10/22 Xavier Coello MD [address] [place] [address] Consulting Physician Pain Management 11/16/22 Ranjeet Varghese MD [address] [facility] [place] [address] Consulting Physician Orthopedic Surgery 01/12/23 documented as of this encounter
--- OUTSIDE RECORDS SUMMARY | 2025-01-01 22:07 | XMS_ITS | Encounter Summary ---
Author Organization [facility]/Health system Facility Care Team Providers Care Set Up Worker Name Role Phone Jim Bain DO Primary Care Provider [phone] Migue Lennon MD Primary Care Provider [phone] Roxanna Hawkins MD Unavailable [phone] Xavier Coello MD Unavailable Ranjeet Varghese MD Unavailable [phone] Encounter Details Date Type Department Care Team (Latest Contact Info) Description 08/31/2015 Orders Only [facility] CLINCONV ProviderArely MD [address] [place] [address] Social History Tobacco Use Types Packs/Day Years Used Date Smoking Tobacco: Former Comments Unknown Sex and Gender Information Value Date Recorded Sex Assigned at Not on file Legal Sex Female 11:58 PM CARD LACER JACQUARD Gender Identity Not on file Sexual Orientation Not on file documented as of this encounter Plan of Treatment Not on file documented as of this encounter Procedures Procedure Name Priority Date/Time Associated Diagnosis Comments PROCEDURE - RESULT 09/07/2015 12 :00 AM CDT documented in this encounter Results * PROCEDURE - RESULT (09/07/2015 12:00 AM CDT) Narrative 09/07/2015 12:00 AM CDT Ordered by an unspecified provider. us Historical Provider Final Res ult documented in this encounter Visit Diagnoses Not on filedocumented in this encounter Additional Health Concerns Infection Onset Date Last Indicated Resolved Time C. difficile suspected 12/11/2024 12/16/202412/12 7:26 PM CDT C. difficile suspected 12/16/2024 12/16/202412/16 2:28 PM CARD LACER JACQUARD documented as of this encounter Care Teams Set Up Worker Relationship Specialty Start Date End Date Jim Bain DO PCP - General Internal Medicine 12/12/18 06/30/22 Migue Lennon MD PCP - General Family Practice 07/01/22 Roxanna Hawkins MD [address] [place] [address] Referring Physician Obstetrics and Gynecology 10/10/22 Xavier Coello MD [address] [place] [address] Consulting Physician Pain Management 11/16/22 Ranjeet Varghese MD [address] [facility] [address] Consulting Physician Orthopedic Surgery 01/12/23 documented as of this encounter
--- OUTSIDE RECORDS SUMMARY | 2025-01-01 22:08 | XMS_ITS | Encounter Summary ---
Author Organization [facility] Facility Care Team Providers Care Body Welder Name Role Phone Jim Bain DO Primary Care Provider [phone] Migue Lennon MD Primary Care Provider [phone] Roxanna Hawkins MD Unavailable [phone] Xavier Coello MD Unavailable Ranjeet Varghese MD Unavailable [phone] Encounter Details Date Type Department Care Team (Latest Contact Info) Description 03/23/2015 Orders Only [facility] CLINCONV ProviderArely MD [address] [place] [address] Social History Tobacco Use Types Packs/Day Years Used Date Smoking Tobacco: Former Comments Unknown Sex and Gender Information Value Date Recorded Sex Assigned at Not on file Legal Sex Female 11:58 PM DIRECTOR OF RESEARCH CENTER Gender Identity Not on file Sexual Orientation Not on file documented as of this encounter Plan of Treatment Not on file documented as of this encounter Procedures Procedure Name Priority Date/Time Associated Diagnosis Comments PROCEDURE - RESULT 03/24/2015 12 :00 AM DIRECTOR OF RESEARCH CENTER documented in this encounter Results * PROCEDURE - RESULT (03/24/2015 12:00 AM DIRECTOR OF RESEARCH CENTER) Narrative 03/24/2015 12:00 AM DIRECTOR OF RESEARCH CENTER Ordered by an unspecified provider. us Historical Provider Final Res ult documented in this encounter Visit Diagnoses Not on filedocumented in this encounter Additional Health Concerns Infection Onset Date Last Indicated Resolved Time C. difficile suspected 12/11/2024 12/16/202412/12 7:26 PM CDT C. difficile suspected 12/16/2024 12/16/202412/16 2:28 PM DIRECTOR OF RESEARCH CENTER documented as of this encounter Care Teams Body Welder Relationship Specialty Start Date End Date Jim Bain DO PCP - General Internal Medicine 12/12/18 06/30/22 Migue Lennon MD PCP - General Family Practice 07/01/22 Roxanna Hawkins MD [address] [place] [address] Referring Physician Obstetrics and Gynecology 10/10/22 Xavier Coello MD [address] [place] [address] Consulting Physician Pain Management 11/16/22 Ranjeet Varghese MD [facility] [facility] [place] [address] Consulting Physician Orthopedic Surgery 01/12/23 documented as of this encounter
--- OUTSIDE RECORDS SUMMARY | 2025-01-01 22:08 | XMS_ITS | Encounter Summary ---
Author Organization [facility] Address [address] [place] [address] Care Team Providers Care Area Secretary Name Role Phone Migue Lennon MD Primary Care Provider [phone] Roxanna Hawkins MD Unavailable [phone] Xavier Coello MD Unavailable Ranjeet Varghese MD Unavailable [phone] Encounter Details Date Type Department Care Team (Latest Contact Info) Description 12/11/2024 Results Follow-Up [facility] Gastroenterology at [address] [place] [address] Kimber Ball MD [address] [facility] [address] [place] [address] CRP (cardiac risk), Comprehensive metabolic panel, CBC without differential, Additional followed-up results: 5 Social History Tobacco Use Types Packs/Day Years Used Date Smoking Tobacco: Former Cigarettes Q uit: 1978 AUDIT-C Answer Date Recorded Q1: How often do you have a drink containing alc ohol? Never 04/24/2023 Average Number of Drinks Not on file 024 Q3: How often do you have si x or more drinks on one occasion? Never 04/24/2023 Comments No Sex and Gender Information Value Date Recorded Sex Assigned at Not on file Legal Sex Female 11:58 PM SWIMMING POOL SALESPERSON Gender Identity Not on file Sexual Orientation Not on file documented as of this encounter Functional Status * BP Location Answer Date of Assessment Author Right arm 12/11/2024 8:24 AM CDT Talha Reed MA * BP Location Answer Date of Assessment Author Right arm 12/11/2024 8:24 AM CDT Talha Reed MA documented as of this encounter Miscellaneous Notes * Result Encounter Note - Kimber Ball MD - 12/11/2024 2:27 PM CDT Stool tests and celiac disease serologies pending documented in this encounter Plan of Treatment Not on file documented as of this encounter Visit Diagnoses Not on filedocumented in this encounter Additional Health Concerns Infection Onset Date Last Indicated Resolved Time C. difficile suspected 12/11/2024 12/16/202412/12 7:26 PM CDT C. difficile suspected 12/16/2024 12/16/202412/16 2:28 PM SWIMMING POOL SALESPERSON documented as of this encounter Care Teams Area Secretary Relationship Specialty Start Date End Date Migue Lennon MD PCP - General Family Practice 07/01/22 Roxanna Hawkins MD [address] [place] [address] Referring Physician Obstetrics and Gynecology 10/10/22 Xavier Coello MD [address] [place] [address] Consulting Physician Pain Management 11/16/22 Ranjeet Varghese MD [address] [facility] [place] [address] Consulting Physician Orthopedic Surgery 01/12/23 documented as of this encounter
--- OUTSIDE RECORDS SUMMARY | 2025-01-01 22:08 | XMS_ITS | Clinical Summary ---
Author Organization [facility] [place] Address [address] [place] [address] Phone Care Team Providers Care Ramp And Cargo Supervisor Name Role Phone Taya Jim Lindsey DO Primary Care Provider [phone] Allergies Active Allergy Reactions Criticality Noted Date Comments Oxycodone Nausea and Vomiting Low 05/26/2020 Sulfa (Sulfonamide Antibiotics) Swelling Low 09/14 Medications atenolol (TENORMIN) 25 mg Oral tablet Take 25 mg by mouth daily. Active colesevelam (WELCHOL) 625 mg Oral Tab Take 1,875 mg by mouth 2 times daily with meals. Active rosuvastatin (CRESTOR) 5 mg Oral tablet Take 5 mg by mouth daily at bedtime. Active desvenlafaxine SR 24 hour (PRISTIQ) 50 mg Oral Tb24 Take 50 mg by mouth daily with breakfast. Active diazepam (VALIUM) 2 mg Oral tablet Take 2 mg by mouth every 6 hours as needed. Active MULTIVITAMINS WITH FLUORIDE (MULTI-VITAMIN ORAL) Take by mouth. Active MAGNESIUM ORAL Take by mouth. Active CALCIUM ORAL Take by mouth. Active ERGOCALCIFEROL, VITAMIN D2, (VITAMIN D ORAL) Take by mouth. Active FIBER ORAL Take by mouth. Active aspirin (KAREN) 81 mg Oral Tab Take by mouth. Active pantoprazole (PROTONIX) 40 mg Tablet, Delayed Release (E.C.) Take 40 mg by mouth daily. Active linaCLOtide (Linzess) 72 mcg Capsule capsule Take 72 mcg by mouth daily before breakfast. Active icosapent ethyL (Vascepa) 1 gram Capsule Take by mouth. Active DULoxetine (CYMBALTA) 60 mg Capsule, Delayed Release(E.C.) Take 60 mg by mouth daily. Active calcium-vitamin D3 (CALTRATE 600+D) 600 mg(1,500mg) -200 unit Tablet Take by mouth. Active cholecalciferol, vitamin D3, 1,000 unit Take by mouth. Active magnesium oxide (MAG-OX) 400 mg (241.3 mg magnesium) tablet Take 400 mg by mouth daily. Active Active Problems Patient Care Coordination No te Formatting of this note migh t be different from the original. Primary Care: Kashif Chin MD Referring Provider: Mel Saldana MD [address] [place] [address] Other: Problem Noted Date Diagnosed Date Postlaminectomy syndrome, lumbar region 05/27/19 21 Other spondylosis with radiculopathy, lumbar reg ion 05/26/2020 Lacunar stroke 10/07/2011 High cholesterol GERD (gastroesophageal reflux disease) PVC (pulmonary venous congestion) Anxiety Depression Knee pain Back pain Stroke Gastric ulcer, unspecified a s acute or chronic, without mention of hemorrhage, perforation, or obstruction Colitis Arthritis Osteoporosis Family History Medical History Relation Name Comments Prostate Cancer Brother 1 josé Stroke Brother 2 Cancer Father stomach cancer Pancreatic Cancer Father Stroke Sister 1 laura Cancer Sister 2 champ lymphoma Breast Cancer Neg Hx Relation Name Status Comments Brother 1 josé Alive Brother 2 Father Sister 1 laura Sister 2 champ Alive Social History Tobacco Use Types Packs/Day Years Used Date Smoking Tobacco: Former Cigarettes 1 6 0 10/06/1972 - 10/06/1978 Smokeless Tobacco: Never Alcohol Use Standard Drinks/Week Comments Yes 0 (1 standard drink = 0.6 oz pur e alcohol) raely Comments No Sex and Gender Information Value Date Recorded Sex Assigned at Not on file Legal Sex Female 6:11 AM WORLD TRAVEL COUNSELOR Gender Identity Not on file Sexual Orientation Not on file Occupation Industry Job Start Date Job End Date Not on file Not on file Not on file Not on file Last Filed Vital Signs Vital Sign Reading Time Taken Comments Blood Pressure 123/69 10/07/2011 11:44 AM CDT Pulse - - Temperature - - Respiratory Rate - - Oxygen Saturation - - Inhaled Oxygen Concentration - - Weight 63.5 kg (140 lb) 05/26/2020 12:53 PM CDT Height 156.2 cm (5' 1.5) 05/26/2020 12:53 PM CD T Body Mass Index 26.02 05/26/2020 12:53 PM CDT Plan of Treatment Health Maintenance Due Date Last Done Comments DTAP/TDAP/TD VACCINES (1 - Tdap) 1965 PNEUMOCOCCAL VACCINE 50+ YEARS (1 of 1 - PCV) 01/17/19 96 ZOSTER VACCINE (1 of 2) 01/18/1996 OSTEOPOROSIS SCREENING 2011 RSV VACCINE (60+ or ) (1 - 1-dose 75+ series) 2021 INFLUENZA VACCINE (#1) 2024 Care Teams Ramp And Cargo Supervisor Relationship Specialty Start Date End Date Jim Bain DO [address] [facility] [address] [facility] [address] [place] [address] PCP - General Internal Medicine 05/26/20
--- OUTSIDE RECORDS SUMMARY | 2025-01-01 22:08 | XMS_ITS | Clinical Summary ---
Author Organization [facility] Address [facility] [facility] [place] [address] Care Team Providers Care Commercial Lines Assistant Name Role Phone Kashif Chin MD Unavailable [phone] Kashif Chin MD Primary Care Provider [phone] Ranjeet Benson MD Unavailable [phone] Sneha Bo MD Unavailable [phone] Source Comments [facility],non-owned Affiliates and Associated Physician Practices is amultiple site organization consisting of ambulatory clinics and hospital sitesin [place], [place], [place] and [place]. This disclosure is being madepursuant to the Care Everywhere program and may not contain all information available regarding this patient. Last updated 17.[facility] Allergies Active Allergy Reactions Criticality Noted Date Comments Sulfa Drugs 06/02/2010 Medications * Be aware that medications may not be up to date on this document. Alwaysverify current medications with the patient. colesevelam (WELCHOL) 625 MG tablet as directed. Active rosuvastatin (CRESTOR) 5 MG tablet as directed. Active [id number] ethyl esters (LOVAZA) 1 GM capsule 2 Caps 2 times daily. Active atenolol (TENORMIN) 25 MG tablet daily. Active gabapentin (NEURONTIN) 100 MG tablet daily. Active desvenlafaxime SR 24hr (PRISTIQ) 50 MG tablet daily. Active aspirin 81 MG tablet daily. Active Cholecalciferol (VITAMIN D3) 3000 UNIT TABS Activ e tiZANidine (ZANAFLEX) 4 MG tablet Take 1 Tab by mouth every 8 hours as needed for Muscle Spasms. 30 Tab 0 05/26/2011 Active nortriptyline (PAMELOR) 10 MG capsule Take 1 Cap by mouth at bedtime. 30 Cap 3 05/26/2011 Active diazepam (VALIUM) 2 MG tablet Take 1 Tab by mouth 3 times daily as needed for Anxiety. 90 Tab 3 07/13/2011 Active Active Problems Problem Noted Date Diagnosed Date Degeneration of lumbar or lumbosacral interverte bral disc 06/02/2010 Spinal stenosis, lumbar thierry on, with neurogenic claudication 06/02/2010 Family History Relation Name Status Comments Brother 1 Alive x2 Brother 2 X4 Child Alive X1; Healthy Father (Age 80) [place] Mother (Age 87) Heart Dise ase Sister 1 Alive x1 Sister 2 x3 Social History Tobacco Use Types Packs/Day Years Used Date Smoking Tobacco: Never Smokeless Tobacco: Never Alcohol Use Standard Drinks/Week Comments No 0 (1 standard drink = 0.6 oz pur e alcohol) Comments Unknown Sex and Gender Information Value Date Recorded Sex Assigned at Not on file 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 Gender Identity Not on file Sexual Orientation Not on file Occupation Industry Job Start Date Job End Date Retired Not on file Not on file Not on file Last Filed Vital Signs Vital Sign Reading Time Taken Comments Blood Pressure 108/70 09/14/2011 8:57 AM CDT Pulse 72 09/14/2011 8:57 AM CDT Temperature 36.8 C (98.2 F) 09/14/2011 8:57 AM CDT Respiratory Rate - - Oxygen Saturation - - Inhaled Oxygen Concentration - - Weight 62.9 kg (138 lb 9.6 oz) 09/14/2011 8:57 A M CDT Height 157.5 cm (5' 2) 09/14/2011 8:57 AM CDT Body Mass Index 25.35 09/14/2011 8:57 AM CDT Plan of Treatment Health Maintenance Due Date Last Done Comments BONE DENSITY TESTING 1945 HEPATITIS C SCREENING 01/13/1964 DTAP/TDAP/TD VACCINES (1 - Tdap) 1965 PNEUMOCOCCAL VACCINE 50+ (1 of 1 - PCV) 01/18/1996 ZOSTER VACCINE (1 of 2) 01/18/1996 Respiratory Syncytial Virus (RSV) Vaccine Pt: or over 60 yrs (1 - 1-dose 75+ series) 2021 DEPRESSION SCREENING 02/14/2024 COVID-19 VACCINE (2024-2 6 season) 2024 INFLUENZA VACCINE (#1) 2024 HEPATITIS B VACCINE Aged Out No longe r eligible based on patient's age to complete this topic HIB VACCINE Aged Out No longer eligi ble based on patient's age to complete this topic HPV VACCINE Aged Out No longer eligi ble based on patient's age to complete this topic MENINGOCOCCAL (Group B) VACC INE SHARED DECISION-MAKING Aged Out No longer eligibl e based on patient's age to complete this topic MENINGOCOCCAL GROUPS A/C/Y/W VACCINE Aged Out No longer eligible b ased on patient's age to complete this topic Care Teams Commercial Lines Assistant Relationship Specialty Start Date End Date Kashif Chin MD [address] [place] [id number] PCP - General 05/26/11 Kashif Chin MD Internal Medicine 06/02/10 Ranjeet Benson MD [address] [place] [address] Neurological Surgery 07/13/11 Sneha Bo MD [facility] [address] Neurology 09/14/11
--- OUTSIDE RECORDS SUMMARY | 2025-01-01 22:08 | XMS_ITS | Clinical Summary ---
Author Organization [facility] Address [address] [place] [address] Care Team Providers Care Target Aircraft Technician Name Role Phone Migue Lennon MD Primary Care Provider [phone] Roxanna Hawkins MD Unavailable [phone] Xavier Coello MD Unavailable Ranjeet Varghese MD Unavailable [phone] Allergies Active Allergy Reactions Criticality Noted Date Comments Ciprofloxacin-Dexametha sone Swelling Medium 12/21/2021 Oxycodone Nausea & Vomiting Low 10/20/2022 Pt states she can take tylenol with codeine Sulfa (Sulfonamide Antibiotics) Swelling Medium 08/29/2011 Medications atenolol (TENORMIN) 25 mg tablet Take 1 tablet (25 mg total) by mouth daily Active colesevelam (WELCHOL) 625 mg tablet Take 3 tablets (1,875 mg total) by mouth 2 (two) times a day with meals [address] (CYMBALTA) 20 mg capsule Take 3 capsules (60 mg total) by mouth daily Active multivitamin with minerals tablet Active rosuvastatin (CRESTOR) 20 mg tablet 9 Active icosapent ethyL (VASCEPA) 1 gram capsule Take 1 capsule (1 g total) by mouth 2 (two) times a day Active magnesium gluconate 200 mg tabletIndicatio ns:hypomagnesem ia Take 1 tablet (200 mg total) by mouth 2 (two) times a day Active cholecalciferol 25 mcg (1,000 unit) tablet Take 1 tablet (1,000 Units total) by mouth 2 (two) times a day Active cetirizine (ZyrTEC) 10 mg tablet Take 2 tablets (20 mg total) by mouth daily as needed for allergies Active UNABLE TO FIND Take 1 each by mouth daily GENTESA 75MG PO DAILY Active calcium carbonate (OS-MAURICE) 1,500 mg (600 mg elemental) tablet Take 1 tablet (1,500 mg total) by mouth 2 (two) times a day Active biotin 1 mg tablet Take 1 tablet (1,000 mcg total) by mouth daily Active donepeziL (ARICEPT) 5 mg tablet Take 1 tablet (5 mg total) by mouth nightly Active hydroxychloroqu ine (PLAQUENIL) 200 mg tabletIndicatio ns:Rheumatoid Arthritis Take 2 tablets (400 mg total) by mouth 2 (two) times a day Active Prolia 60 mg/mL syringe 5 Active vibegron 75 mg tablet Take 75 mg by mouth 3 Active famotidine (PEPCID) 20 mg tablet Take 1 tablet (20 mg total) by mouth nightly 90 tablet 5 Active acetaminophen-c odeine (TYLENOL with CODEINE #3) 300-30 mg per tablet 9 12/12/19 Discontinu ed(Therapy completed) alendronate (FOSAMAX) 70 mg tablet Take 1 tablet (70 mg total) by mouth every 7 days Take in the morning with a full glass of water, on an empty stomach, and do not take anything else by mouth or lie down for the next 30 min. 12/12/19 Discontinu ed(Therapy completed) famotidine (PEPCID) 20 mg tablet Take 1 tablet (20 mg total) by mouth daily as needed for heartburn 12/12/19 Discontinu ed(Therapy completed) cefdinir (OMNICEF) 300 mg capsuleIndicati ons:Urinary Tract/Genitouri nary Infection Take 1 capsule (300 mg total) by mouth 2 (two) times a day 12/12/19 Discontinu ed(Therapy completed) nitrofurantoin (MACRODANTIN) 100 mg capsule Take 1 capsule (100 mg total) by mouth 2 (two) times a day 3 12/12/19 Discontinu ed(Therapy completed) linaCLOtide (LINZESS) 145 mcg capsule 72 mcg 12/12/19 Discontinu ed(Therapy completed) tiZANidine (ZANAFLEX) 4 mg tablet Take 1 tablet (4 mg total) by mouth every 8 (eight) hours as needed for muscle spasms 90 tablet 4 12/12/19 Discontinu ed(Therapy completed) trimethoprim (TRIMPEX) 100 mg tablet Take 1 tablet (100 mg total) by mouth daily 12/12/19 Discontinu ed(Therapy completed) Active Problems Problem Noted Date Diagnosed Date History of gastroesophageal reflux (GERD) 2024 Assessment & Plan (12/11/2024 1:28 PM CDT): History, labs, relevant imaging studies, endoscopic reports and pathology, previous treatment and response were reviewed with patient. Discussed diagnosis, including benefits and side effects of H2 dorothea and PPI therapy. Discussed life style modification for GERD. . Diarrhea 12/11/2024 Assessment & Plan (12/11/2024 1:30 PM CDT): History, labs, relevant imaging studies, endoscopic reports and pathology, previous treatment and response were reviewed with patient. Rule out IBD, IBS, infectious colitis, colonic dysmotility, medication effects, celiac disease. Empiric therapy with antidiarrheals at this time, if symptoms persist or if laboratory tests consistent with inflammatory changes, may consider flexible sigmoidoscopy Lumbar radiculopathy 08/05/2012 Postlaminectomy syndrome of lumbar region 2012 Osteoarthritis of lumbar spine 08/05/2012 Chronic pain 08/05/2012 Lumbago 07/10/2012 Biceps tendinitis 02/20/2012 Subdeltoid bursitis 01/23/2012 Complete tear of rotator cuff 12/19/2011 Arthralgia of shoulder 12/15/2011 Osteoarthritis of knee 05/16/2011 Knee pain 06/21/2010 Vitamin D deficiency disease 06/12/2010 Overview (05/25/2017): Description: Vitamin D Deficiency Hyperlipidemia 06/12/2010 Overview (05/25/2017): Description: Hyperlipidemia Encounters Date Type Department Care Team Description 12/16/2024 12:45 PM VENEER STACKER Lab [address] [address] Diarrhea, unspecified type 12/11/2024 9:25 AM CDT Lab [address] [address] Diarrhea, unspecified type 12/11/2024 8:30 AM CDT Office Visit [facility] G[facility] at [address] [phone] Kimber Ball MD Diarrhea, unspecified type (Primary Dx); History of gastroesophageal reflux (GERD) 12/11/2024 Results Follow-Up [facility] Gastroenterology at [address] [phone] Kimber Ball MD CRP (cardiac risk), Comprehensive metabolic panel, CBC without differential, Additional followed-up results: 5 from Last 3 Months Surgical History Surgery Date Site/Laterality Comments COLON SURGERY 2007 CHOLECYSTECTOMY Cholecystectomy - (Added by TW Conv) ROTATOR CUFF REPAIR Rotator Cuff Repair - (Added by Conv) BAND HEMORRHOIDECTOMY 02/14/2020 - 02/12/2021 APPENDECTOMY 02/13/1993 - 02/12/1994 COLONOSCOPY 02/13/2018 - 02/12/2019 CARPAL TUNNEL RELEASE 02/13/2007 - 02/13/2008 REPLACEMENT TOTAL KNEE 02/13/2013 - 02/12/2014 Left REPLACEMENT TOTAL KNEE 02/13/2015 - 02/13/2016 Right BREAST BIOPSY 07/08/2022 Right Medical History Medical History Date Comments Anxiety and depression Lipid disorder High cholesterol PVC (premature ventricular contraction) Osteopenia Spinal stenosis Diverticulitis Stroke (HCC) Bladder infection Covid 02/04 Family History Medical History Relation Name Comments Lung cancer Brother 1 Prostate cancer Brother 2 Cancer Father Family history of malignant neoplasm - (Added by TW Conv) Pancreatic cancer Father Cancer Mother Family history of malignant neoplasm - (Added by TW Conv) Hypertension Mother Family history of hypertension - (Added by TW Conv) Hypertension Other 1 Hypertension - (Added by TW Conv) Cancer Other 2 Reported Family History Of Cancer - (Added by TW Conv) Non-Hodgkin's Lymphoma Sister Relation Name Status Comments Brother 1 Brother 2 Father Mother Other 1 Other 2 Sister Social History Tobacco Use Types Packs/Day Years Used Date Smoking Tobacco: Former Cigarettes Q uit: 1979 Tobacco Cessation:Counseling Given: Not Answered AUDIT-C Answer Date Recorded Q1: How often do you have a drink containing alc ohol? Never 04/24/2023 Average Number of Drinks Not on file 024 Q3: How often do you have si x or more drinks on one occasion? 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 Gender Identity Not on file Sexual Orientation Not on file Obstetrics History Para Term AB IAB SAB Ectopic Multiple Livin g Live Births 1 1 1 Date Outcome GA Total Labor Labor/2nd/3rd Weight Sex Type Anes PTL Isabel A1 A5 Name Clin Term Last Filed Vital Signs Vital Sign Reading Time Taken Comments Blood Pressure 112/60 12/11/2024 8:24 AM CDT Pulse 64 12/11/2024 8:24 AM CDT Temperature 36.1 C (97 F) 12/19/2023 2:03 PM VENEER STACKER Respiratory Rate 18 12/19/2023 2:03 PM VENEER STACKER Oxygen Saturation 95% 12/11/2024 8:24 AM CDT Inhaled Oxygen Concentration - - Weight 59.9 kg (132 lb) 12/11/2024 8:24 AM CDT Height 154.9 cm (5' 1) 12/11/2024 8:24 AM CDT Body Mass Index 24.94 12/11/2024 8:24 AM CDT Plan of Treatment Health Maintenance Due Date Last Done Comments Depression Screening 1945 Fall Risk Assessment 1945 Hepatitis C Screening 1945 Osteoporosis Screening-Bone Density Scan 1945 DTaP/Tdap/Td Vaccine (1 - Tdap) 1957 Hepatitis B Screening 01/18/1964 Well Visit 65+ 2011 Pneumococcal vaccine 65+ (2 of 2 - PCV) 07/26/2016 07/27/2015 Influenza Vaccine (#1) 2024 , 11/16/2020, 12/27/2018, Additional history exists Zoster Vaccine Completed 02/12/2021, 12/08/2020 Breast Cancer Screening-Mammogram Discontinued 10/21/2021, 10/20/2021, 07/14/2020, Additional history exists Medical Devices Implanted Type Area Director Immunology Device Identifier Shelf Expiration Date Model / Serial / Lot H[employer] Partnership Marker Biospy Site Top Hat Shape Senomark [id number] - [id number] Implanted:Qty: 1 on 07/08/2022 by Liam Salazar MD at [facility] Breast [employer] Partnership [id number] 12/07/2022 SMARK-DARYA ERO-2S / / [id number] Hologic [employer] Partnership Marker Biospy Site Mini Cork Shape Securmark Smark-Celero - [id number] Implanted:Qty: 1 on 07/08/2022 by Liam Salazar MD at [facility] Right: Breast [employer] [id number] 09/21/2022 SMARK-DARYA ERO / / [id number] Procedures Procedure Name Priority Date/Time Associated Diagnosis Comments CALPROTECTIN, FECAL Routine 12/16/2024 1 2:48 PM VENEER STACKER Diarrhea, unspecified type STOOL CULTURE Routine 12/16/2024 12:48 PM VENEER STACKER Diarrhea, unspecified type TISSUE TRANSGLUTAMINASE, IGA Routine 12/11/2024 9:34 AM CDT EGFR Routine 12/11/2024 9:34 AM CDT Diarrhea, unspecified type CBC WITHOUT DIFFERENTIAL Routine 12/11/2024 9:34 AM CDT Diarrhea, unspecified type COMPREHENSIVE METABOLIC PANEL Routine 12/11/2024 9:34 AM CDT Diarrhea, unspecified type CRP, HIGH SENSITIVITY Routine 12/11/2024 9:34 AM CDT Diarrhea, unspecified type CELIAC REFLEX PANEL Routine 12/11/2024 9 :34 AM CDT Diarrhea, unspecified type from Last 3 Months Results * (ABNORMAL) Calprotectin, fecal (12/16/2024 12:48 PM VENEER STACKER) Calprotectin, fecal 90.8(H) <50.0 (Normal) mcg/g [facility] Comment: Interpretation: Borderline (50.0-120 mcg/g) Test Performed by: [facility] [place] [address] [place] [address] Ground Wood Supervisor: Lavonne Kwan Ph.D.; CLIA# [id number] Stool 12/16/2024 12:4 8 PM VENEER STACKER 12/16/2024 6:21 PM VENEER STACKER Narrative JUAN CARLSON - 12/20/2024 2:00 PM VENEER STACKER received in lab; 12/19/2024 11:12:36 VENEER STACKER [id number] Kimber Ball MD LAB BODY FLUIDS AND STOOLS ORDER MARSHAL Final Result JUAN CARLSON [address] [facility] Department [place] [address] [facility] * Stool culture Stool Rectum (12/16/2024 12:48 PM VENEER STACKER) Direct Specimen Exam Shiga Toxin Testing: Antigen detection assay for Shiga-toxin NEGATIVE for Shiga Toxin 1 and Shiga Toxin 2. Comment:Testing performed by : [facility], [address] [facility] [place]., [address] Report Final Report: No growth of enteric bacterial pathogens JUAN CARLSON Comment:Testing performed by : [address] [place] [address] Stool (Rectum) 12/16/2024 12 :48 PM VENEER STACKER 12/16/2024 8:29 PM VENEER STACKER Narrative JUAN CARLSON - 12/20/2024 9:32 AM VENEER STACKER Received in transport media. Testing performed by [facility] ([phone]). Routine stool cultures include procedures to detect Salmonella, Shigella, Edwardsiella, Aeromonas, Pleisiomonas, Campylobacter, Yersinia, E. coli O157, and Shiga-like toxins. Vibrio is cultured only upon special request. If Vibrio is suspected, please call the laboratory at [phone]. Interpretive data was last updated June 20, 2016. us Kimber Ball MD LAB MICROBIOLOGY - GENERAL ORDER MARSHAL Final Result Performing Organization Address [facility] Co de Phone Number JUAN [address] [facility] [place] [address] * eGFR (12/11/2024 9:34 AM CDT) eGFR 83 >=60 mL/min/1. 73 m2 Comment: Interpretive Data Reference Interval Normal >/= 90 mL/min/1.73m2 Mildly decreased* 60 - 89 mL/min/1.73m2 Mildly to moderately decreased 45 - 59 mL/min/1.73m2 Moderately to severely decreased 30 - 44 mL/min/1.73m2 Severely decreased 15 - 29 mL/min/1.73m2 Kidney Failure < 15 mL/min/1.73m2 *Relative to young adult level Estimated glomerular filtration rate is determined by the 2020 CKD-EPI equation recommended by the National Kidney Foundation (A Unifying Approach to GFR Estimation: Recommendations of the NKF-ASK Task Force on Reassessing the Inclusion of Race in Diagnosing Kidney Disease, JASN 2020). The CKD-EPI equation should not be used for patients with unstable renal function and has not been validated in children and those over 70. Current interpretive data was last reviewed 2020. Blood 12/11/2024 9:34 AM CDT 12/11/2024 10:45 AM CDT us Kimber Ball MD LAB BLOOD ORDERABLES Final Resul t Performing Organization Address [facility] Co de Phone Number JUAN [address] [facility] [place] [address] * Celiac reflex panel (12/11/2024 9:34 AM CDT) IgA 155 61 - 356 mg/dL [facility] Celiac disease interpretation See Footnote JUAN Comment: See Comment: Negative serology. Celiac disease unlikely. However, approximately 10% of patients with celiac disease are seronegative. Also, patients who are already adhering to a gluten-free diet may be seronegative. If celiac disease is highly clinically suspected, consider HLA-DQ typing. Test Performed by: [place] [address] [address] [employer] Supervisor: Lavonne Kwan Ph.D.; CLIA# [id number] Blood 12/11/2024 9:34 AM CDT 12/11/2024 10:45 AM CDT Narrative JUAN CARLSON - 12/17/2024 10:13 PM VENEER STACKER specimen receipted; 12/13/2024 06:41:56 CDT [id number] received in lab;12/16/2024 14:35:49 VENEER STACKER [id number] Kimber Ball MD LAB BLOOD ORDERABLES Final Resul t [facility] [address] [facility] Department [place] [address] [facility] * Tissue transglutaminase IgA (TGG-IgA Ab) (12/11/2024 9:34 AM CDT) TTG ab, IgA <1.2 <4.0 (Negative) units/mL Comment: Test Performed by: [place] [id number] [place] Supervisor: Lavonne Kwan Ph.D.; CLIA# [id number] Interpretive data Negative: <15 units/mL Positive: > or equal to 15 units/mL Current interpretive data was last revised on 2016. Testing performed by: [facility], [address] [facility], [place]., [address] Blood 12/11/2024 9:34 AM CDT 12/11/2024 10:45 AM CDT Kimber Ball MD LAB BLOOD ORDERABLES Final Resul t Performing Organization Address [facility] de Phone Number JUAN [address] [address] * (ABNORMAL) CBC without differential (12/11/2024 9:34 AM CDT) [facility] WBC 7.04 3.80 - 9.90 K/cumm Hgb 11.4(L) 11.9 - 15.5 g/dL [facility] Hct 34.8(L) 35.6 - 45.5 % [facility] Plt 206 150 - 400 K/cumm [facility] MPV 9.5 9.1 - 12.3 fL [facility] RBC 3.72(L) 3.90 - 5.20 M/cumm [facility] MCV 93.5 81.3 - 96.4 fL [facility] MCH 30.6 27.1 - 33.3 pg [facility] MCHC 32.8 32.3 - 35.7 g/dL [facility] RDW CV 12.7 11.1 - 14.9 % [facility] RDW SD 43.4 35.7 - 48.1 fL [facility] NRBC abs 0.00 0.00 - 0.01 K/cumm [facility] Blood 12/11/2024 9:34 AM CDT 12/11/2024 10:45 AM CDT Kimber Ball MD LAB BLOOD ORDERABLES Final Resul t Performing Organization Address [facility] Co de Phone Number JUAN [address] [address] * CRP (cardiac risk) (12/11/2024 9:34 AM CDT) [facility] hsCRP 25.20 mg/L Comment: Interpretive data Adult only - values greater than or equal to 10 mg/L are consistent with infection or inflammation. Individuals with evidence of active infection, systemic inflammatory processes, or trauma should not be tested until these conditions have abated. When using HS CRP to assess cardiovascular risk, two measurements should be taken, two weeks apart (averaging results). The CDC/AHA recommended the following HS CRP cut off points (tertiles) for CVD assessment. Adult low risk <1.0 mg/L Average risk 1.0 - 3.0 mg/L High Risk >3.0 mg/L Current interpretive data was last revised on 2017. Blood 12/11/2024 9:34 AM CDT 12/11/2024 10:45 AM CDT Kimber Ball MD LAB BLOOD ORDERABLES Final Resul t [facility] [address] [facility] Department [place] [address] * (ABNORMAL) Comprehensive metabolic panel (12/11/2024 9:34 AM CDT) Sodium 138 135 - 145 mmol/L Potassium, pl 4.1 3.3 - 4.9 mmol/L [facility] Chloride 104 97 - 110 mmol/L [facility] CO2 24 22 - 32 mmol/L [facility] Anion gap 10 2 - 15 mmol/L [facility] BUN 12 6 - 25 mg/dL [facility] Creatinine 0.74 0.60 - 1.10 mg/dL [facility] Glucose 89 70 - 199 mg/dL [facility] Comment: Interpretive Data Fasting glucose >/= 126 mg/dl is diagnostic for diabetes. Fasting is defined as no caloric intake for at least 8 hours. Fasting glucose between 100 mg/dl to 125 mg/dl is diagnostic of prediabetes. In a patient with classic symptoms of hyperglycemia or hyperglycemic crisis, a random glucose >/= 200 mg/dl is diagnostic for diabetes. In the absence of unequivocal hyperglycemia, results should be confirmed by repeat testing. The classification and Diagnosis of Diabetes Diabetes Care 202; 46: S19-S40. Current interpretive data was last revised 2022. Calcium 8.8 8.5 - 10.3 mg/dL [facility] Bilirubin, total 0.4 0.1 - 1.2 mg/dL [facility] Protein, pl 6.2(L) 6.5 - 8.5 g/dL [facility] Albumin 3.9 3.5 - 5.0 g/dL [facility] Alk phos 45 40 - 130 Units/L [facility] ALT 19 7 - 45 Units/L [facility] AST 23 10 - 45 Units/L [facility] Blood 12/11/2024 9:34 AM CDT 12/11/2024 10:45 AM CDT Kimber Ball MD LAB BLOOD ORDERABLES Final Resul t JUAN [address] [facility] Department [place] [address] from Last 3 Months Insurance [facility] ADVANTAGE [facility] Address: [address] [address] [employer] MEDICARE ADVANTAGE [facility] Address: [address] [address] [place] [address] [facility] MED[facility] ADV[employer]AGE [facility] Address: [facility] [address] [place] [address] Advance Directives For more information, please contact: [phone] Documents on File Type Date Recorded Patient Cooker Syrup Expl anation ADVANCE DIRECTIVE 09/17/2015 12:00 AM DNR ADVANCE DIRECTIVE 09/17/2015 12:00 AM POWER OF COMMUNICATIONS CLERK FINANCIAL/MEDICAL Care Teams Target Aircraft Technician Relationship Specialty Start Date End Date Migue Lennon MD PCP - General Family Practice 07/01/22 Roxanna Hawkins MD [address] [place] [address] Referring Physician Obstetrics and Gynecology 10/10/22 Xavier Coello MD [address] [place] [address] Consulting Physician Pain Management 11/16/22 Ranjeet Varghese MD [address] [place] [address] Consulting Physician Orthopedic Surgery 01/12/23
== END 2025-01-01 14:28 | disposition home or self-care (01) ==
PROVIDERS: PCP Family Medicine; Visit Provider Internal Medicine
DX: M35.9 Systemic involvement of connective tissue, unspecified (principal); M54.50 Low back pain, unspecified
CPT/HCPCS: 72110; 72170